=== PATIENT | female | born 1955 | race Caucasian/White ===

== ENCOUNTER → 2018-03-10 21:43 | Outpatient (CLI) | payer BC, SELFPAY ==
[2018-03-10 16:35] VITALS: BMI 42.7
[2018-03-10 21:54] LABS: Absolute Lymphocyte Count 2.11 X10^3/ul (0.83-4.51); Basophil# 0.03 X10^3/uL; Basophil% 0.3 % (0-1); Eosinophil# 0.19 X10^3/uL; Eosinophils% 1.9 % (0-5); Hematocrit 43.3 % (37-47); Hemoglobin 14.2 g/dl (12.0-15.0); Lymphocyte # 2.11 X10^3/ul (4.0); Lymphocyte % 21.1 % (19-41); Mean Corp Hgb Conc 32.8 g/gl (32-36); Mean Corpuscular Hgb 28.9 pg (27.0-32.0); Mean Platelet Vol. 10.4 fl (6.2-12.0); Monocyte# 0.61 X10^3/uL; Monocyte% 6.1 % (0-10); Neutrophil # 7.01 X10^3/uL (2.7-7.7); Neutrophil % 70.3 % (47-70); Platelet Count 291 K/mm3 (150-450); RBC Distribution Width CV 13.7 % (11.6-14.6); RBC Distribution Width SD 43.6 fl (35.1-43.9); Red Blood Count 4.92 M/mm3 (4.2-5.4)
[2018-03-10 21:55] LABS: POSITIVE COUNT NO; POSITIVE DIFFERENTIAL NO; POSITIVE MORPHOLOGY NO
[2018-03-10 22:15] LABS: ALB/GLOB Ratio 1.1 RATIO (0.9-2.4); AST(SGOT) 22 U/L (15-37); Alanine Aminotransfer ALT/SGPT 32 U/L (13-56); Alkaline Phosphatase 123 U/L (45-117); Anion Gap 8 (5-15); BUN 17 mg/dL (7-18); BUN/Creat Ratio 16.3 RATIO (10-20); Calcium,Total 8.9 mg/dL (8.5-10.1); Chloride 103 mmol/L (98-107); Cholesterol 162 mg/dL (200); Creatinine, Serum 1.04 mg/dL (0.55-1.02); EST Glomerular Filtration Rate 57 mL/min (>60); Est Glom Filt Rate - Afr Amer 69 mL/min (>60); Free T3 2.6 pg/mL (2.18-3.98); Globulin 3.6 g/dL (2.2-4.2); Glucose 90 mg/dL (74-106); High Density Lipoprotein 40 mg/dL; Potassium 4.2 mmol/L (3.5-5.1); Protein, Total 7.6 g/dL (6.4-8.2); Sodium Level 141 mmol/L (136-145); T4 Free Direct 0.95 ng/dL (0.76-1.46); Thyroid Stim Hormone (TSH) 4.13 uIU/mL (0.358-3.74); Triglycerides 337 mg/dL; Very Low Density Lipoprotein 67 mg/dL (5-40)
== END ==
PROVIDERS: Referring Provider Nurse Practitioner; Visit Provider Nurse Practitioner
DX: I10 Essential (primary) hypertension (principal); E03.9 Hypothyroidism, unspecified; E78.5 Hyperlipidemia, unspecified
CPT/HCPCS: 80053; 80061; 84439; 84443; 84481; 85025

== ENCOUNTER → 2018-07-02 22:47 | Outpatient (CLI) | payer BC, SELFPAY ==
[2018-03-10 16:35] VITALS: BMI 42.7
[2018-07-02 23:15] LABS: ALB/GLOB Ratio 1.1 RATIO (0.9-2.4); AST(SGOT) 25 U/L (15-37); Alanine Aminotransfer ALT/SGPT 37 U/L (13-56); Albumin, Serum 3.6 g/dL (3.2-5.0); Alkaline Phosphatase 119 U/L (45-117); Anion Gap 7 (5-15); BUN 23 mg/dL (7-18); BUN/Creat Ratio 17.7 RATIO (10-20); Calcium,Total 8.5 mg/dL (8.5-10.1); Chloride 103 mmol/L (98-107); Cholesterol 151 mg/dL (200); EST Glomerular Filtration Rate 44 mL/min (>60); Est Glom Filt Rate - Afr Amer 53 mL/min (>60); Globulin 3.4 g/dL (2.2-4.2); Glucose 162 mg/dL (74-106); High Density Lipoprotein 37 mg/dL; Potassium 3.9 mmol/L (3.5-5.1); Sodium Level 139 mmol/L (136-145); Thyroid Stim Hormone (TSH) 1.83 uIU/mL (0.358-3.74); Triglycerides 315 mg/dL; Very Low Density Lipoprotein 63 mg/dL (5-40)
[2018-07-02 23:18] LABS: Absolute Lymphocyte Count 1.53 X10^3/ul (0.83-4.51); Absolute Neutrophil Count 6.1 X10^3/uL (2.0-7.7); Basophil# 0.02 X10^3/uL; Basophil% 0.2 % (0-1); Eosinophil# 0.15 X10^3/uL; Eosinophils% 1.8 % (0-5); Hematocrit 42.1 % (37-47); Hemoglobin 13.3 g/dl (12.0-15.0); Lymphocyte # 1.53 X10^3/ul (4.0); Lymphocyte % 18.5 % (19-41); Mean Corp Hgb Conc 31.6 g/gl (32-36); Mean Corpuscular Hgb 27.9 pg (27.0-32.0); Mean Corpuscular Volume 88.4 fL (81-99); Mean Platelet Vol. 10.8 fl (6.2-12.0); Monocyte# 0.43 X10^3/uL; Monocyte% 5.2 % (0-10); Neutrophil # 6.12 X10^3/uL (2.7-7.7); Neutrophil % 73.8 % (47-70); Platelet Count 256 K/mm3 (150-450); RBC Distribution Width CV 14.1 % (11.6-14.6); RBC Distribution Width SD 44.8 fl (35.1-43.9); Red Blood Count 4.76 M/mm3 (4.2-5.4); White Blood Count 8.3 K/mm3 (4.4-11.0)
[2018-07-02 23:19] LABS: POSITIVE COUNT NO; POSITIVE DIFFERENTIAL NO; POSITIVE MORPHOLOGY NO
== END ==
PROVIDERS: Referring Provider Nurse Practitioner; Visit Provider Nurse Practitioner
DX: I10 Essential (primary) hypertension (principal); E78.5 Hyperlipidemia, unspecified; E03.9 Hypothyroidism, unspecified
CPT/HCPCS: 80053; 80061; 84443; 85025

== ENCOUNTER → 2018-08-11 | Outpatient (CLI) | payer BC, SELFPAY ==
[2018-07-12 17:04] VITALS: BMI 43.9
[2018-08-12 00:45] LABS: Thyroid Stim Hormone (TSH) 2.92 uIU/mL (0.358-3.74)
== END | disposition home or self-care (01) ==
LOC: OLS.AHF 08-12 00:08 → LABSPEC 08-13 08:11
PROVIDERS: Visit Provider Nurse Practitioner
DX: E03.9 Hypothyroidism, unspecified (principal)
CPT/HCPCS: 84443

== ENCOUNTER → 2019-03-08 | Outpatient (CLI) | payer BC, SELFPAY ==
[2019-03-07 22:11] VITALS: BMI 41.4
[2019-03-08 01:16] LABS: Cholesterol 151 mg/dL (200); High Density Lipoprotein 36 mg/dL; Thyroid Stim Hormone (TSH) 1.61 uIU/mL (0.358-3.74); Triglycerides 244 mg/dL; Very Low Density Lipoprotein 49 mg/dL (5-40)
== END | disposition home or self-care (01) ==
PROVIDERS: Family Provider Nurse Practitioner; PCP Nurse Practitioner; Referring Provider Nurse Practitioner; Visit Provider Nurse Practitioner
DX: E03.9 Hypothyroidism, unspecified (principal); E78.1 Pure hyperglyceridemia
CPT/HCPCS: 80061; 84443

== ENCOUNTER 2021-05-08 21:29 | Outpatient (CLI) | payer BC, SELFPAY ==
[2021-05-08 21:40] LABS: Absolute Lymphocyte Count 2.04 X10^3/uL (0.83-4.51); Absolute Neutrophil Count 6.3 X10^3/uL (2.0-7.7); Basophil# 0.06 X10^3/uL; Basophil% 0.7 % (0-1); Eosinophil# 0.11 X10^3/uL; Eosinophils% 1.2 % (0-5); Hemoglobin 15.3 g/dL (12.0-15.0); Lymphocyte # 2.04 X10^3/ul (0.83-4.51); Lymphocyte % 22.4 % (19-41); Mean Corp Hgb Conc 33.3 g/dL (32-36); Mean Corpuscular Hgb 29.3 pg (27.0-32.0); Mean Corpuscular Volume 88.1 fL (81-99); Mean Platelet Vol. 9.6 fl (6.2-12.0); Monocyte# 0.58 X10^3/uL; Monocyte% 6.4 % (0-10); NRBC Flagged by Analyzer 0 % (0-5); Neutrophil # 6.28 X10^3/uL (2.7-7.7); Neutrophil % 69.1 % (47-70); Platelet Count 335 K/mm3 (150-450); RBC Distribution Width SD 42.1 fl (35.1-43.9); Red Blood Count 5.22 M/mm3 (4.2-5.4); White Blood Count 9.1 K/mm3 (4.4-11.0)
[2021-05-08 22:02] LABS: AST(SGOT) 26 U/L (15-37); Alanine Aminotransfer ALT/SGPT 41 U/L (13-56); Alkaline Phosphatase 118 U/L (45-117); Anion Gap 5 (5-15); BUN 22 mg/dL (7-18); BUN/Creat Ratio 22.2 RATIO (10-20); Chloride 106 mmol/L (98-107); Cholesterol 199 mg/dL (200); Creatinine, Serum 0.99 mg/dL (0.55-1.02); EST Glomerular Filtration Rate 59 mL/min (>60); Est Glom Filt Rate - Afr Amer 72 mL/min (>60); Globulin 3.9 g/dL (2.2-4.2); Glucose 99 mg/dL (74-106); High Density Lipoprotein 50 mg/dL; Potassium 4.7 mmol/L (3.5-5.1); Protein, Total 7.9 g/dL (6.4-8.2); Sodium Level 142 mmol/L (136-145); Thyroid Stim Hormone (TSH) 1.47 uIU/mL (0.358-3.74); Triglycerides 118 mg/dL; Very Low Density Lipoprotein 24 mg/dL (5-40)
[2021-05-08 22:09] LABS: Hemoglobin A1c 6.3 % (3.8-5.6)
== END 2021-05-08 23:59 | disposition short-term general hospital (02) ==
PROVIDERS: PCP Nurse Practitioner; Referring Provider Nurse Practitioner; Visit Provider Nurse Practitioner
DX: I10 Essential (primary) hypertension (principal); E11.65 Type 2 diabetes mellitus with hyperglycemia; E06.3 Autoimmune thyroiditis; E03.9 Hypothyroidism, unspecified
CPT/HCPCS: 80053; 80061; 83036; 84443; 85025

== ENCOUNTER → 2022-06-17 | Outpatient (CLI) | payer BC, SELFPAY ==
[2022-06-17 23:02] LABS: Absolute Lymphocyte Count 1.99 X10^3/uL (0.83-4.51); Absolute Neutrophil Count 6.7 X10^3/uL (2.0-7.7); Basophil# 0.06 X10^3/uL; Basophil% 0.6 % (0-1); Eosinophil# 0.15 X10^3/uL; Eosinophils% 1.6 % (0-5); Hematocrit 47.3 % (37-47); Hemoglobin 15.4 g/dL (12.0-15.0); Lymphocyte # 1.99 X10^3/ul (0.83-4.51); Lymphocyte % 21.1 % (19-41); Mean Corp Hgb Conc 32.6 g/dL (32-36); Mean Corpuscular Hgb 28.8 pg (27.0-32.0); Mean Corpuscular Volume 88.6 fL (81-99); Mean Platelet Vol. 11.1 fl (6.2-12.0); Monocyte# 0.54 X10^3/uL; Monocyte% 5.7 % (0-10); NRBC Flagged by Analyzer 0 % (0-5); Neutrophil # 6.66 X10^3/uL (2.7-7.7); Neutrophil % 70.7 % (47-70); Platelet Count 303 K/mm3 (150-450); RBC Distribution Width CV 13.1 % (11.6-14.6); RBC Distribution Width SD 42.1 fl (35.1-43.9); Red Blood Count 5.34 M/mm3 (4.2-5.4); White Blood Count 9.4 K/mm3 (4.4-11.0)
[2022-06-17 23:36] LABS: ALB/GLOB Ratio 1.1 RATIO (0.9-2.4); AST(SGOT) 27 U/L (15-37); Alanine Aminotransfer ALT/SGPT 33 U/L (13-56); Albumin, Serum 3.8 g/dL (3.2-5.0); Alkaline Phosphatase 130 U/L (45-117); Anion Gap 7 (5-15); BUN 19 mg/dL (7-18); Calcium,Total 9.4 mg/dL (8.5-10.1); Chloride 103 mmol/L (98-107); Cholesterol 196 mg/dL (200); Creatinine, Serum 1.19 mg/dL (0.55-1.02); EST Glomerular Filtration Rate 48 mL/min (>60); Est Glom Filt Rate - Afr Amer 58 mL/min (>60); Globulin 3.6 g/dL (2.2-4.2); Glucose 128 mg/dL (74-106); High Density Lipoprotein 42 mg/dL; Potassium 4.2 mmol/L (3.5-5.1); Protein, Total 7.4 g/dL (6.4-8.2); Sodium Level 140 mmol/L (136-145); Thyroid Stim Hormone (TSH) 1.84 uIU/mL (0.358-3.74); Triglycerides 423 mg/dL
== END | disposition home or self-care (01) ==
PROVIDERS: PCP Nurse Practitioner; Visit Provider Nurse Practitioner
DX: I10 Essential (primary) hypertension (principal); E03.9 Hypothyroidism, unspecified; E78.1 Pure hyperglyceridemia; E78.5 Hyperlipidemia, unspecified
CPT/HCPCS: 80053; 80061; 84443; 85025

== ENCOUNTER → 2023-10-02 | Outpatient (CLI) | payer BC, SELFPAY ==
[2023-10-02 20:30] LABS: Absolute Neutrophil Count 5.3 X10^3/uL (2.0-7.7); Basophil# 0.04 X10^3/uL; Basophil% 0.5 % (0-1); Eosinophil# 0.16 X10^3/uL; Eosinophils% 2.1 % (0-5); Hematocrit 43.8 % (37-47); Hemoglobin 14.4 g/dL (12.0-15.0); Lymphocyte % 23.1 % (19-41); Mean Corp Hgb Conc 32.9 g/dL (32-36); Mean Corpuscular Hgb 28.9 pg (27.0-32.0); Mean Platelet Vol. 10.7 fl (6.2-12.0); Monocyte# 0.44 X10^3/uL; Monocyte% 5.7 % (0-10); NRBC Flagged by Analyzer 0 % (0-5); Neutrophil # 5.32 X10^3/uL (2.7-7.7); Neutrophil % 68.3 % (47-70); Platelet Count 267 K/mm3 (150-450); RBC Distribution Width CV 13.1 % (11.6-14.6); RBC Distribution Width SD 41.6 fl (35.1-43.9); Red Blood Count 4.98 M/mm3 (4.2-5.4); White Blood Count 7.8 K/mm3 (4.4-11.0)
[2023-10-02 20:58] LABS: Hemoglobin A1c 5.8 % (3.8-5.6)
[2023-10-02 21:03] LABS: ALB/GLOB Ratio 1.2 RATIO (0.9-2.4); AST(SGOT) 32 U/L (15-37); Alanine Aminotransfer ALT/SGPT 39 U/L (13-56); Alkaline Phosphatase 89 U/L (45-117); Anion Gap 7 (5-15); BUN 26 mg/dL (7-18); BUN/Creat Ratio 25.2 RATIO (10-20); Calcium,Total 9.6 mg/dL (8.5-10.1); Chloride 103 mmol/L (98-107); Cholesterol 174 mg/dL (200); Creatinine, Serum 1.03 mg/dL (0.55-1.02); EST Glomerular Filtration Rate 57 mL/min (>60); Est Glom Filt Rate - Afr Amer 68 mL/min (>60); Globulin 3.4 g/dL (2.2-4.2); Glucose 105 mg/dL (74-106); High Density Lipoprotein 41 mg/dL; Potassium 3.9 mmol/L (3.5-5.1); Protein, Total 7.4 g/dL (6.4-8.2); Sodium Level 139 mmol/L (136-145); Thyroid Stim Hormone (TSH) 1.01 uIU/mL (0.358-3.74); Triglycerides 232 mg/dL; Very Low Density Lipoprotein 46 mg/dL (5-40)
== END | disposition home or self-care (01) ==
PROVIDERS: PCP Nurse Practitioner; Referring Provider Nurse Practitioner; Visit Provider Nurse Practitioner
DX: E11.65 Type 2 diabetes mellitus with hyperglycemia (principal); E78.1 Pure hyperglyceridemia; I10 Essential (primary) hypertension
CPT/HCPCS: 80053; 80061; 83036; 84443; 85025

== ENCOUNTER → 2025-02-20 | Outpatient (CLI) | payer BC, SELFPAY ==
--- OUTSIDE RECORDS SUMMARY | 2025-02-20 22:23 | XMS RPT_ITS | CCD ---
Author Organization [facility] Inform ion Partnership [facility] Care Team Providers Care Activated Sludge Operator Name Role Phone Louise Reyes Primary Care Provider Louise Reyes Unavailable Unavailable Louise Reyes Unavailable Unavailable Louise Reyes Unavailable Unavailable Unavailable Jimmie Silveira MD Unavailable Dr. Louise Reyes Primary Care Perez JOHNSON, Dr. ARIANA ROUSE Attending Perez JOHNSON, Dr. ARIANA ROUSE Referring Perez Noel MANAGER TRADE.SALES ARCHITECTChristopher Primary Care Provide r CHRISTOPHER NOEL Referring Unavailable CHRISTOPHER NOEL Primary Care Unavailable Milton HEAVY DUTY PRESS OPERATOR, Christopher Referring Unavailable Milton HEAVY DUTY PRESS OPERATOR, Christopher Attending Unavailable Milton HEAVY DUTY PRESS OPERATOR, Christopher Primary Care Unavailable Allergies Allergy Classification Reported Allergen(s) Allergy Type Date of Onset Reaction(s) Facility Cephalosporins (antibiotic) (1 source) Cefaclor; Translations: [Ceclor] Drug Allergy [facility] Work Phone: (7 sources) Cefaclor Drug Allergy 06-11-2021 Itching [facility] Work Phone: (1 source) Cefaclor Drug Allergy 03-10-2018 rash [facility] (1 source) Cefaclor Drug Allergy 03-10-2018 [facility] Repository Medications Current Medications Medication Drug Class(es) Dates Sig (Normalized) Sig (Original) [id number] 200 actuat albuterol 0.09 mg/actuat metered dose inhaler (9 sources) beta2-Adrenergic Agonist Start: 07-05-2019 End: 06-17-2022 take 1 puff(s) by inhalation every four hours Albuterol Sulfate (Proair Hfa) 90 mcg/actuation HFA aerosol inhaler Active 2 PUFF INHALATION Q4H 8.5 June 17, 2022 3:18pm Start: 07-12-2018 take 2 puff(s) by [facility] every four hours as needed ProAir HFA 108 (90 Base) MCG/ACT Inhalation Aerosol Solution inhale 2 (TWO) puffs BY MOUTH EVERY 4 HOURS NEEDED for bronchospasm Quantity: 8 Refills: 0 Ordered: 12-Jul-2018 DO Start : 12-Jul-2018 Active Start: 07-12-2018 take 2 puff(s) by mo [facility] every four hours as needed ProAir HFA 108 (90 Base) MCG/ACT Inhalation Aerosol Solution inhale 2 (TWO) puffs BY MOUTH EVERY 4 HOURS NEEDED for bronchospasm Quantity: 8 Refills: 0 Start : 12-Jul-2018 Active candesartan cilexetil 16 mg oral tablet (12 sources) Angiotensin 2 Receptor Miguel Start: 05-28-2020 take 1 tablet by mouth once daily Candesartan Cilexetil 8 MG Oral Tablet TAKE 1 TABLET BY MOUTH EVERY DAY Quantity: 90 Refills: 1 Ordered: 20-Nov-2020 Louise Reyes DO Start : 28-May-2020 Active Start: 07-02-2018 End: 06-17-2022 take 16 mg by mouth once daily Candesartan Active 16 M G PO DAILY June 17, 2022 3:16pm hydroCHLOROthiazide 25 mg oral tablet (12 sources) Thiazide Diuretic Start: 07-02-2018 End: 06-17-2022 take 25 mg by mouth once daily in the morning Hydrochlorothiazide Active 25 MG PO EVERY MORNING June 17, 2022 3:16pm levothyroxine sodium 0.1 mg oral tablet (15 sources) l-Thyroxine Start: 01-24-2019 End: 06-18-2022 take 100 ug by mouth once daily Levothyroxine Active 100 MCG PO daily June 18, 2022 7:37pm Start: 06-11-2018 End: 09-09-2018 take 75 ug by mouth once daily Levothyroxine Discontin ued 75 MCG PO daily July 05, 2018 12:06September 08, 2018 11:06pm Start: 03-10-2018 End: 07-02-2018 take 50 ug by mouth once daily Levothyroxine Discontin ued 50 MCG PO DAILY March 10, 2018 12:00am July 02, 2018 3:59pm Completed/Discontinued Medications Medication Drug Class(es) Dates Sig (Normalized) Sig (Original) Albuterol Sulfate (Proair Hfa) 90 mcg/actuation HFA aerosol inhaler (1 source) Start: 07-12-2018 End: 07-05-2019 take 1 puff(s) by inhalation every four hours Albuterol Sulfate (Proair Hfa) 90 mcg/actuation HFA aerosol inhaler Discontinued 2 PUFF INHALATION Q4H 8.5 July 11, 2018 11:00pm July 05, 2019 2:17pm amoxicillin 875 mg / clavulanate 125 mg oral tablet (1 source) Penicillin-class Antibacterial Start: 07-05-2018 End: 07-12-2018 take 1 tablet by mouth twice daily Amoxicillin-Pot Clavulanate Discontinued 1 TABLET PO TWICE A DAY July 04, 2018 11:00pm July 12, 2018 4:24pm hydroCHLOROthiazide 25 mg / losartan potassium 100 mg oral tablet (2 sources) Thiazide Diuretic, Angiotensin 2 Receptor Miguel Start: 03-10-2018 End: 07-02-2018 take 1 tablet by mouth once daily Losartan-Hydroch lorothiazide Discontinued 1 TABLET PO DAILY March 10, 2018 4:57pm July 02, 2018 3:59pm levoFLOXacin 500 mg oral tablet (1 source) Quinolone Antimicrobial Start: 07-12-2018 End: 01-24-2019 take 500 mg by mouth once daily Levofloxacin Discontinued 500 MG PO DAILY July 11, 2018 11:00pm January 24, 2019 2:04pm predniSONE 10 mg oral tablet (1 source) Start: 07-12-2018 End: 07-20-2018 Prednisone Discontinued 20 MG PO TWICE A DAY 24 08July 11, 2018 11:00pm July 19, 2018 11:07pm 2 po bid 4D,1 po bid for 4 D, 1 po qd for 4D 1/2 po qd for2 D Problems Active Problems Problem Classification Problem Date Documented Da te Episodic/Chronic Chronic obstructive pulmonary disease and bronchiectasis (1 source) Bronchitis; Translations: [Bronchitis, not specified as acute or chronic] 07-12-2018 Episodic Diabetes mellitus with complications (2 sources) Type II diabetes mellitus uncontrolled; Translations: [Uncontrolled type 2 diabetes mellitus] Onset: 10-12-2023 05-08-2021 Chronic Diabetes mellitus without complication (1 source) Hyperglycemia; Translations: [Impaired fasting glucose] Episodic Disorders of lipid metabolism (3 sources) Mixed hyperlipidemia; Translations: [Mixed hyperlipidemia] 03-07-2019 Chronic Essential hypertension (8 sources) Benign essential hypertension; Translations: [Benign essential hypertension] 07-05-2019 Chronic Fever of unknown origin (1 source) Fever; Translations: [Fever, unspecified] 07-12-2018 Episodic Immunizations and screening for infectious disease (7 sources) Patient encounter status; Translations: [Other specified vaccination] 05-08-2021 Episodic Comment on above: cat 1 neg 09/2019; 10/20/2019 Dr.David Bender yers-> diverticula, tortuous colon, polyp b9; Neoplasms of unspecified nature or uncertain behavior (1 source) 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; Translations: [Neoplasm of uncertain behavior of connective and other soft tissue] Onset: 06-11-2021 06-11-2021 Episodic Nutritional deficiencies (1 source) Vitamin D deficiency; Translations: [Vitamin D deficiency, unspecified] 01-24-2019 Chronic Other nutritional; endocrine; and metabolic disorders (7 sources) Body mass index 40+ - severely obese; Translations: [Body Mass Index 40.0-44.9, adult] Chronic Other screening for suspected conditions (not mental disorders or infectious disease) (1 source) Encounter for screening mammogram for malignant neoplasm of breast; Translations: [Encounter for screening mammogram for malignant neoplasm of breast] Onset: 11-06-2022 Episodic Other upper respiratory infections (1 source) Maxillary sinusitis; Translations: [Chronic maxillary sinusitis] 07-05-2018 Chronic Other upper respiratory infections (1 source) Pharyngitis; Translations: [Acute pharyngitis, unspecified] 07-05-2018 Episodic Otitis media and related conditions (2 sources) Acute left otitis media; Translations: [Otitis media, unspecified, left ear] 07-05-2018 Episodic Thyroid disorders (10 sources) Hypothyroidism; Translations: [Unspecified acquired hypothyroidism] 11-25-2021 Chronic Past or Other Problems Problem Classification Problem Date Documented Da te Episodic/Chronic Unclassified (20 sources) Patient encounter status; Translations: [Breast cancer screening] Unclassified (1 source) Problem NEGATED: Highlighted row has not occurred!Residual codes; unclassified (12 sources) Disease Episodic Results Test Name Value Interpretation Reference Range Facility CBC W/Diff, Automatedon 06-0 7-2023 Absolute Lymph 1.80 X10 3/uL Normal 0.83-4.51 [facility] Comment on above: Performed By: #### L 100.0100, L501.9985, L500.4050, L500.4100, L501.9520 #### [facility] [address] [place], [address] Absolute Neut 5.3 X10 3/uL Normal 2.0-7.7 [facility] Comment on above: Performed By: #### L 100.0100, L501.9985, L500.4050, L500.4100, L501.9520 #### [facility] [address] [place], [address] Basophils/100 WBC (Bld) 0.5 % Normal 0-1 [facility] Comment on above: Performed By: #### L 100.0100, L501.9985, L500.4050, L500.4100, L501.9520 #### [facility] [address] [place], [address] Eosinophils/100 WBC (Bld) 2.1 % Normal 0-5 [facility] Comment on above: Performed By: #### L 100.0100, L501.9985, L500.4050, L500.4100, L501.9520 #### [facility] [address] [place], [address] Erythrocyte distribution width (RBC) [Ratio] 13.1 % Normal 11.6-14.6 [facility] Comment on above: Performed By: #### L 100.0100, L501.9985, L500.4050, L500.4100, L501.9520 #### [facility] [address] [place], [address] Hematocrit (Bld) [Volume fraction] 43.8 % Normal 37-47 [facility] Comment on above: Performed By: #### L 100.0100, L501.9985, L500.4050, L500.4100, L501.9520 #### [facility] [address] [place], [address] Hemoglobin (Bld) [Mass/Vol] 14.4 g/dL Normal 12.0-15.0 [facility] Comment on above: Performed By: #### L 100.0100, L501.9985, L500.4050, L500.4100, L501.9520 #### [facility] [address] [place], [address] IG% 0.300 Normal 0.0-0.9 [facility] Comment on above: Result Comment: IG% - Immature Granulocytes (promyelocytes, myelocytes and metamyelocytes) > 1% indicates that a LEFT SHIFT is Present. Performed By: #### L 100.0100, L501.9985, L500.4050, L500.4100, L501.9520 #### [facility] [address] [place], [address] Lymphocytes/100 WBC (Bld) 23.1 % Normal 19-41 [facility] Comment on above: Performed By: #### L 100.0100, L501.9985, L500.4050, L500.4100, L501.9520 #### [facility] [address] [place], [address] MCH (RBC) [Entitic mass] 28.9 pg Normal 27.0-32.0 [facility] Comment on above: Performed By: #### L 100.0100, L501.9985, L500.4050, L500.4100, L501.9520 #### [facility] [address] [place], [address] MCHC (RBC) [Mass/Vol] 32.9 g/dL Normal 32-36 [facility] Comment on above: Performed By: #### L 100.0100, L501.9985, L500.4050, L500.4100, L501.9520 #### [facility] [address] [place], [address] MCV (RBC) [Entitic vol] 88.0 fL Normal 81-99 [facility] Comment on above: Performed By: #### L 100.0100, L501.9985, L500.4050, L500.4100, L501.9520 #### [facility] [address] [place], [address] Monocytes/100 WBC (Bld) 5.7 % Normal 0-10 [facility] Comment on above: Performed By: #### L 100.0100, L501.9985, L500.4050, L500.4100, L501.9520 #### [facility] [address] [place], [address] Neutrophils/100 WBC (Bld) 68.3 % Normal 47-70 [facility] Comment on above: Performed By: #### L 100.0100, L501.9985, L500.4050, L500.4100, L501.9520 #### [facility] [address] [place], [address] Nucleated RBC (Bld) [#/Vol] 0 10*3/uL Normal 0-5 [facility] Comment on above: Performed By: #### L 100.0100, L501.9985, L500.4050, L500.4100, L501.9520 #### [facility] [address] [place], [address] Platelet mean volume (Bld) [Entitic vol] 10.7 fL Normal 6.2-12.0 [facility] Comment on above: Performed By: #### L 100.0100, L501.9985, L500.4050, L500.4100, L501.9520 #### [facility] [address] [place], [address] Platelets (Bld) [#/Vol] 267 10*3/uL Normal 150-450 [facility] Comment on above: Performed By: #### L 100.0100, L501.9985, L500.4050, L500.4100, L501.9520 #### [facility] [address] [place], [address] RBC (Bld) [#/Vol] 4.98 10*6/uL Normal 4.2-5.4 [facility] Comment on above: Performed By: #### L 100.0100, L501.9985, L500.4050, L500.4100, L501.9520 #### [facility] [address] [place], [address] RDW SD 41.6 fl Normal 35.1-43.9 [facility] Comment on above: Performed By: #### L 100.0100, L501.9985, L500.4050, L500.4100, L501.9520 #### [facility] [address] [place], [address] WBC (Bld) [#/Vol] 7.8 10*3/uL Normal 4.4-11.0 [facility] Comment on above: Performed By: #### L 100.0100, L501.9985, L500.4050, L500.4100, L501.9520 #### [facility] [address] [place], [address] Comprehensive Metabolic Prof [facility] 10-02-2023 Albumin [Mass/Vol] 4.0 g/dL Normal 3.2-5.0 [facility] Comment on above: Performed By: #### L 100.0100, L501.9985, L500.4050, L500.4100, L501.9520 #### [facility] [address] [place], [address] Albumin/Globulin [Mass ratio] 1.2 {ratio} Normal 0.9-2.4 [facility] Comment on above: Performed By: #### L 100.0100, L501.9985, L500.4050, L500.4100, L501.9520 #### [facility] [address] [place], [address] ALK P 89 U/L Normal 45-117 [facility] Comment on above: Performed By: #### L 100.0100, L501.9985, L500.4050, L500.4100, L501.9520 #### [facility] [address] [place], [address] ALT [Catalytic activity/Vol] 39 U/L Normal 13-56 [facility] Comment on above: Performed By: #### L 100.0100, L501.9985, L500.4050, L500.4100, L501.9520 #### [facility] [address] [place], [address] AST [Catalytic activity/Vol] 32 U/L Normal 15-37 [facility] Comment on above: Performed By: #### L 100.0100, L501.9985, L500.4050, L500.4100, L501.9520 #### [facility] [address] [place], [address] Bilirubin [Mass/Vol] 0.50 mg/dL Normal 0.20-1.00 [facility] Comment on above: Result Comment: For patients on eltrombopag therapy, use of Dimension [place] TBIL is not recommended. Performed By: #### L 100.0100, L501.9985, L500.4050, L500.4100, L501.9520 #### [facility] [address] [place], [address] BUN/CRE 25.2 RATIO High 10-20 [facility] Comment on above: Performed By: #### L 100.0100, L501.9985, L500.4050, L500.4100, L501.9520 #### [facility] [address] [place], [address] CA,Total 9.6 mg/dL Normal 8.5-10.1 [facility] Comment on above: Performed By: #### L 100.0100, L501.9985, L500.4050, L500.4100, L501.9520 #### [facility] [address] [place], [address] Chloride [Moles/Vol] 103 mmol/L Normal 98-107 [facility] Comment on above: Performed By: #### L 100.0100, L501.9985, L500.4050, L500.4100, L501.9520 #### [facility] [address] [place], [address] CO2 [Moles/Vol] 29.0 mmol/L Normal 21.0-32.0 [facility] Comment on above: Performed By: #### L 100.0100, L501.9985, L500.4050, L500.4100, L501.9520 #### [facility] [address] [place], [address] Creatinine [Mass/Vol] 1.03 mg/dL High 0.55-1.02 [facility] Comment on above: Result Comment: The validity of the calculated GFR GFRAA in patients over 70 years has not been determined. Clinical correlation is essential. Performed By: #### L 100.0100, L501.9985, L500.4050, L500.4100, L501.9520 #### [facility] [address] [place], [address] EST GFR - AA 68 mL/min Normal >60 [facility] Comment on above: Result Comment: Afri can [place]eg[place] GFR Calc Performed By: #### L 100.0100, L501.9985, L500.4050, L500.4100, L501.9520 #### [facility] [address] [place], [address] GAP 7 Normal 5-15 [facility] Comment on above: Performed By: #### L 100.0100, L501.9985, L500.4050, L500.4100, L501.9520 #### [facility] [address] [place], [address] GFR/1.73 sq M.predicted among non-blacks MDRD (S/P/Bld) [Vol rate/Area] 57 mL/min/{1.73_m2} Low >60 [facility] Comment on above: Result Comment: Non- GFR Calc Performed By: #### L 100.0100, L501.9985, L500.4050, L500.4100, L501.9520 #### [facility] [address] [place], [address] Globulin (S) [Mass/Vol] 3.4 g/dL Normal 2.2-4.2 [facility] Comment on above: Performed By: #### L 100.0100, L501.9985, L500.4050, L500.4100, L501.9520 #### [facility] [address] [place], [address] Glucose [Mass/Vol] 105 mg/dL Normal 74-106 [facility] Comment on above: Result Comment: Fast ing Glucose result from 100 to 125 mg/dL suggests IMPAIRED HOMEOSTASIS per A.D.A. criteria. Performed By: #### L 100.0100, L501.9985, L500.4050, L500.4100, L501.9520 #### [facility] [address] [place], [address] Potassium [Moles/Vol] 3.9 mmol/L Normal 3.5-5.1 [facility] Comment on above: Performed By: #### L 100.0100, L501.9985, L500.4050, L500.4100, L501.9520 #### [facility] [address] [place], [address] Sodium [Moles/Vol] 139 mmol/L Normal 136-145 [facility] Comment on above: Performed By: #### L 100.0100, L501.9985, L500.4050, L500.4100, L501.9520 #### [facility] [address] [place], [address] T PROT 7.4 g/dL Normal 6.4-8.2 [facility] Comment on above: Performed By: #### L 100.0100, L501.9985, L500.4050, L500.4100, L501.9520 #### [facility] [address] [place], [address] Urea nitrogen [Mass/Vol] 26 mg/dL High 7-18 [facility] Comment on above: Performed By: #### L 100.0100, L501.9985, L500.4050, L500.4100, L501.9520 #### [facility] [address] [place], [address] Hemoglobin A1con 10-02-2023 HbA1c (Bld) [Mass fraction] 5.8 % High 3.8-5.6 [facility] Comment on above: Result Comment: Norm al < 5.7 % Prediabetic 5.7 - 6.4 % Diabetic >or= 6.5 % Please note range changes. Performed By: #### L 100.0100, L501.9985, L500.4050, L500.4100, L501.9520 #### [facility] [address] [place], [address] Lipid Profileon 10-02-2023 Cholesterol [Mass/Vol] 174 mg/dL Normal 200 [facility] Comment on above: Result Comment: <200 mg/dL Desirable 200-240 mg/dL Borderline >240 mg/dL High Risk Performed By: #### L 100.0100, L501.9985, L500.4050, L500.4100, L501.9520 #### [facility] [address] [place], [address] Cholesterol in HDL [Mass/Vol] 41 mg/dL Normal [facility] Comment on above: Result Comment: The drugs N-Acetylcysteine and Metamizole may falsely depress this assay. Reference Range HDL <40 mg/dL Low HDL Cholesterol HDL >or= 60 mg/dL High HDL Cholesterol Performed By: #### L 100.0100, L501.9985, L500.4050, L500.4100, L501.9520 #### [facility] [address] [place], [address] Cholesterol in LDL [Mass/Vol] 87 mg/dL Normal 0-130 [facility] Comment on above: Performed By: #### L 100.0100, L501.9985, L500.4050, L500.4100, L501.9520 #### [facility] [address] [place], [address] Cholesterol in VLDL [Mass/Vol] 46 mg/dL High 5-40 [facility] Comment on above: Performed By: #### L 100.0100, L501.9985, L500.4050, L500.4100, L501.9520 #### [facility] [address] [place], [place], [address] Triglyceride [Mass/Vol] 232 mg/dL High [facility] Comment on above: Result Comment: The drugs N-Acetylcysteine and Metamizole may falsely depress this assay. Serum Triglycerides Reference Interval Normal <150 mg/dL Borderline high 150 - 199 mg/dL High 200 - 499 mg/dL Very High > or = 500 mg/dL Performed By: #### L 100.0100, L501.9985, L500.4050, L500.4100, L501.9520 #### [facility] [address] [place], [place], [address] Thyroid Stim Hormone (TSH)on 10-02-2023 TSH 1.01 uIU/mL Normal 0.358-3.74 [facility] Comment on above: Performed By: #### L 100.0100, L501.9985, L500.4050, L500.4100, L501.9520 #### [facility] [address] [place], [place], [address] [facility] 11-06-2022 [facility] HNO ID: [id number] Author: Mammography Coordinator Service: ? Author Type: Physician Type: Letter Filed: 11/10/2022 11:34 PM Note Text: November 07, 2022 PID: [id number] Nara Vega [address] [place] [address] Dear Ms. Vega, We are pleased to inform you that the results of your recent breast imaging exam on 11/06/2022 are normal. Early detection of cancer is very important. We also understand recommendations regarding breast cancer screening are controversial. Please discuss with your primary care provider which strategy is best for you and whether a mammogram is right for you. Your imaging studies and report will be kept on file at [facility] as part of your permanent medical record and are available for your continuing care. Thank you for allowing us to help in meeting your health care needs. Sincerely, Dr. Hooker Interpreting Radiologist [facility] (Normal over 40) Normal [facility] SCREENINGon 11-06-2022 ADIS SCREENING * * *Final Report* * * DATE OF EXAM: Nov 06 2022 10:07AM DEVANTE [id number] - [facility] SCREENING / PROCEDURE REASON: z13.21 screening * * * * Physician Interpretation * * * * #[id number] - [facility] SCREENING BILATERAL DIGITAL SCREENING MAMMOGRAM WITH CAD: 11/06/2022 HISTORY: Z13.21 Screening / Screening Mammogram-Patient reports NO symptoms. RESULT: TECHNIQUE: The study was acquired using full field digital technology and interpreted from soft copy. Current study was also evaluated with a Computer Aided Detection (CAD). Comparison is made to exams dated: 06/10/2021 mammogram, 10/14/2019 mammogram, and 08/06/2016 mammogram - [facility]. The tissue of both breasts is predominantly fatty. No significant masses, calcifications, or other findings are seen in either breast. There has been no significant interval change. IMPRESSION: NEGATIVE There is no mammographic evidence of malignancy. A 1 year screening mammogram is recommended. Chevy blanchard/thom:11/06/2022 21:22:46 Attending Technologist(s): RT Sandy(R)(M), [facility] Video [employer] Sound Recorder(s): RT Cynthia(R)(M), [facility] letter sent: Normal over 40 Mammogram BI-RADS: 1 Negative Multiple national specialty organizations have released breast cancer screening guidelines for women at average risk for developing breast cancer - guidelines that are based on both evidence and opinion, yet differ on when to start and how often to screen for breast cancer. With representation from Breast Imaging, Internal Medicine, Women's Health, Family Medicine, and Medical/Surgical Oncology, the [facility] has carefully reviewed the data and reached the following consensus: 1) All women should engage in shared decision-making with their providers to decide when to start and how often to screen; 2) All women should have the opportunity to start screening mammography at age 40; 3) For women ages 45-55, we recommend annual screening mammograms; 4) For women ages 55 and over, we support both the transition from an annual to a biennial interval if this aligns more with patient's values and preferences, or continuation with annual screening; 5) All women should discuss with their providers when to stop screening mammograms. Non Ferrous Material Handler: Thom Transcribe Date/Time: Nov 06 2022 9:33A Dictated by : CHEVY HOOKER MD This examination was interpreted and the report reviewed and electronically signed by: CHEVY HOOKER MD on Nov 06 2022 9:22PM EST [id number] Normal [facility] Absolute lymphocyte countOrd ered By: Christopher Noel on 06-17-2022 Lymphocytes Auto (Unsp spec) [#/Vol] 1.99 10*3/uL 0.83-4.51 [facility] Basophil percentageOrdered B y: Christopher Noel on 06-17-2022 Basophils/100 WBC (Bld) 0.6 % 0-1 [facility] Bilirubin [Mass/Vol] 0.30 mg/dL 0.20-1.00 [facility] Comment on above: For patients on eltr ombopag therapy, use of Dimension [place] TBIL is not recommended. Chloride [Moles/Vol] 103 mmol/L 98-107 [facility] Cholesterol [Mass/Vol] 196 mg/dL <200 [facility] Comment on above: <200 mg/dL Desirable 200-240 mg/dL Borderline >240 mg/dL High Risk Eosinophils/100 WBC (Bld) 1.6 % 0-5 [facility] Glucose [Mass/Vol] 128 mg/dL 74-106 [facility] Comment on above: Fasting Glucose resu lt greater than or equal to 126 mg/dL suggests DIABETES MELLITUS per A.D.A. criteria. Neutrophils (Bld) [#/Vol] 6.7 10*3/uL 2.0-7.7 [facility] Neutrophils/100 WBC (Bld) 70.7 % 47-70 [facility] Potassium [Moles/Vol] 4.2 mmol/L 3.5-5.1 [facility] Protein [Mass/Vol] 7.4 g/dL 6.4-8.2 [facility] Sodium [Moles/Vol] 140 mmol/L 136-145 [facility] Triglyceride [Mass/Vol] 423 mg/dL <199 [facility] Comment on above: The drugs N-Acetylcy steine and Metamizole may falsely depress this assay. TRIGLYCERIDE IS GREATER THAN 400 mg/dL. LDL RESULT IS INVALID AND WILL NOT BE REPORTED.Serum Triglycerides Reference Interval Normal <150 mg/dL Borderline high 150 - 199 mg/dL High 200 - 499 mg/dL Very High > or = 500 mg/dL WBC (Bld) [#/Vol] 9.4 10*3/uL 4.4-11.0 [facility] Blood erythrocytes count (nu mber/volume)Ordered By: Christopher Noel on 06-17-2022 RBC (Bld) [#/Vol] 5.34 10*6/uL 4.2-5.4 [facility] Blood hemoglobin measurement (mass/volume)Ordered By: Christopher Noel on 06-17-2022 Hemoglobin (Bld) [Mass/Vol] 15.4 g/dL 12.0-15.0 [facility] Blood lymphocytes/100 leukoc ytesOrdered By: Christopher Noel on 06-17-2022 Lymphocytes/100 WBC (Bld) 21.1 % 19-41 [facility] Blood monocytes/100 leukocyt esOrdered By: Christopher Noel on 06-17-2022 Monocytes/100 WBC (Bld) 5.7 % 0-10 [facility] Blood platelet mean volumeOr dered By: Christopher Noel on 06-17-2022 Platelet mean volume (Bld) [Entitic vol] 11.1 fL 6.2-12.0 [facility] Determination of erythrocyte mean corpuscular volume (MCV)Ordered By: Christopher Noel on 06-17-2022 MCV (RBC) [Entitic vol] 88.6 fL 81-99 [facility] Hematocrit Auto (Bld) [Volum e fraction]Ordered By: Christopher Noel on 06-17-2022 Hematocrit (Bld) [Volume fraction] 47.3 % 37-47 [facility] Laboratory - Chemistry and C hemistry - challengeOrdered By: Christopher Noel on 06-17-2022 ALP [Catalytic activity/Vol] 130 U/L 45-117 [facility] ALT [Catalytic activity/Vol] 33 U/L 13-56 [facility] CO2 [Moles/Vol] 30.0 mmol/L 21.0-32.0 [facility] Globulin (S) [Mass/Vol] 3.6 g/dL 2.2-4.2 [facility] Urea nitrogen/Creatinine [Mass ratio] 16.0 mg/mg 10-20 [facility] Laboratory - Hematology and Cell countsOrdered By: Christopher Noel on 06-17-2022 Erythrocyte distribution width (RBC) [Entitic vol] 42.1 fL 35.1-43.9 [facility] Erythrocyte distribution width (RBC) [Ratio] 13.1 % 11.6-14.6 [facility] Immature granulocytes/100 WBC (Bld) 0.300 % 0.0-0.9 [facility] Comment on above: IG% - Immature Granu locytes (promyelocytes, myelocytes and metamyelocytes) > 1% indicates that a LEFT SHIFT is Present. MCH (RBC) [Entitic mass] 28.8 pg 27.0-32.0 [facility] Nucleated RBC/100 WBC (Bld) [Ratio] 0 % 0-5 [facility] MCHC Auto (RBC) [Mass/Vol]Or dered By: Christopher Noel on 06-17-2022 MCHC (RBC) [Mass/Vol] 32.6 g/dL 32-36 [facility] No Panel InformationOrdered By: Christopher Noel on 06-17-2022 Estimated GFR (MDRD) Amer 58 mL/min >60 [facility] Comment on above: GFR Calc Estimated GFR (MDRD) Non-Af Amer 48 mL/min >60 [facility] Comment on above: Non- GFR Calc Thyroid Stimulating Hormone (TSH) 1.84 uIU/mL 0.358-3.74 [facility] Platelets bldOrdered By: Lennox Noel on 06-17-2022 Platelets (Bld) [#/Vol] 303 10*3/uL 150-450 [facility] Serum or plasma albumin china urement (mass/volume)Ordered By: Christopher Noel on 06-17-2022 Albumin [Mass/Vol] 3.8 g/dL 3.2-5.0 [facility] Serum or plasma albumin/glob ulin mass ratioOrdered By: Christopher Noel on 06-17-2022 Albumin/Globulin [Mass ratio] 1.1 {ratio} 0.9-2.4 [facility] Serum or plasma calcium china urement (mass/volume)Ordered By: Christopher Noel on 06-17-2022 Calcium [Mass/Vol] 9.4 mg/dL 8.5-10.1 [facility] Serum or plasma cholesterol in HDL measurement (mass/volume)Ordered By: Christopher Noel on 06-17-2022 Cholesterol in HDL [Mass/Vol] 42 mg/dL >40 [facility] Comment on above: The drugs N-Acetylcy steine and Metamizole may falsely depress this assay. Reference Range HDL <40 mg/dL Low HDL Cholesterol HDL >or= 60 mg/dL High HDL Cholesterol Serum or plasma cholesterol in VLDL measurement (mass/volume)Ordered By: Christopher Noel on 06-17-2022 Cholesterol in VLDL [Mass/Vol] [facility] Comment on above: Test not performed Serum or plasma creatinine m easurement (mass/volume)Ordered By: Christopher Noel on 06-17-2022 Creatinine [Mass/Vol] 1.19 mg/dL 0.55-1.02 [facility] Comment on above: The validity of the calculated GFR & GFRAA in patients over 70 years has not been determined. Clinical correlation is essential. Serum or plasma low density lipoprotein (LDL) cholesterol measurement (mass/volume)Ordered By: Christopher Noel on 06-17-2022 Cholesterol in LDL [Mass/Vol] [facility] Comment on above: Test not performed Serum or plasma urea nitroge n measurement (mass/volume)Ordered By: Christopher Noel on 06-17-2022 Urea nitrogen [Mass/Vol] 19 mg/dL 7-18 [facility] Thin prep Papanicolaou smear with manual screeningOrdered By: Christopher Noel on 06-17-2022 Thin prep Papanicolaou smear with manual screening 27 U/L 15-37 [facility] Thin prep Papanicolaou smear with manual screening 7 5-15 [facility] Office Visit (Urgent Care)on 06-04-2022 Follow-up visit Diagnoses/Problems Assessed Sore throat (462) (J02.9) Acute cough (786.2) (R05.1) Viral syndrome (079.99) (B34.9) Orders Acute cough IO BD Veritor Triplex Ag Test; Status:Resulted - Requires Verification; Done: 04Jun2022 05:12PM Performed:In Office; Due:02Sep2022; Last Updated By:Rufina Jordan; 06/04/2022 5:12:19 PM;Ordered; For:Acute cough; Ordered By:Ariana Johnson; Sore throat Start: Ventolin HFA 108 (90 Base) MCG/ACT Inhalation Aerosol Solution (Albuterol Sulfate HFA); INHALE 1 TO 2 PUFFS EVERY 4 TO 6 HOURS NEEDED Rx By: Ariana Johnson; Dispense: 0 Days ; #:1 X 18 GM Inhaler; Refill: 0;For: Sore throat; JOSE LUIS = N; Verified Transmission to [facility]; Last Updated By: Hina Eller; 06/04/2022 5:11:22 PM IO Rapid Strep; Status:Resulted - Requires Verification,Retros pective Authorization; Done: 04Jun2022 04:47PM Performed:In Office; Due:02Sep2022; Last Updated By:Rufina Jordan; 06/04/2022 4:47:17 PM;Ordered; For:Sore throat; Ordered By:Ariana Johnson; Viral syndrome Start: Benzonatate 200 MG Oral Capsule; TAKE 1 CAPSULE 3 TIMES DAILY OR ONLY AT BEDTIME NEEDED FOR COUGH Rx By: Ariana Johnson; Dispense: 5 Days ; #:15 Capsule; Refill: 0;For: Viral syndrome; JOSE LUIS = N; Sent To: [facility] Patient Discussion/Summary Your strep test was negative. Your COVID test was negative. Your flu test was negative. No evidence of a bacterial infection on today's exam. You have a viral illness. Take prescribed medication as directed. May take [id number] cough and cold medications as needed. Consult a pharmacist if necessary. Follow-up with your primary care physician. History of Present Illness 66-year-old female here with a 4-day history of chills, nasal congestion, sore throat, and cough. She denies any fever, body aches, chest pain, shortness of breath, vomiting, diarrhea or other systemic complaints. Has been taking some herbal remedies and using some oils with some relief. She states she is feeling better but the cough persists. Did receive the COVID and the flu vaccine. Did a home COVID test 4 days ago which was negative. All other review of systems is negative for the chief complaint Active Problems Problems Adult hypothyroidism (244.9) (E03.9) Benign essential hypertension (401.1) (I10) Body mass index (BMI) of 40.0 to 44.9 in adult (V85.41) (Z68.41) Breast cancer screening (V76.10) (Z12.39) cat 1 neg 09/2019 Colon cancer screening (V76.51) (Z12.11) 10/20/2019 Dr.David Ford-> diverticula, tortuous colon, polyp b9 Elevated fasting blood sugar (790.21) (R73.01) Encounter for immunization (V03.89) (Z23) Mixed hyperlipidemia (272.2) (E78.2) Screening cholesterol level (V77.91) (Z13.220) Screening for blood disease (V78.9) (Z13.0) Screening for diabetes mellitus (V77.1) (Z13.1) Sore throat (462) (J02.9) Surgical History Problems History of Appendectomy History of Cholecystectomy History of Hysterectomy due to heavy bleeding, no cancer History of Tonsillectomy with adenoidectomy History of Tubal ligation bilateral Family History Mother Family history of diabetes mellitus (V18.0) (Z83.3) Father Family history of diabetes mellitus (V18.0) (Z83.3) Social History Problems Consumes alcohol occasionally (V49.89) (Z78.9) Consumes caffeine from tea (V49.89) (Z78.9) Does not use illicit drugs (V49.89) (Z78.9) Former smoker (V15.82) (Z87.891) Cessationin 1991 Patient consumes caffeinated coffee (V49.89) (Z78.9) Allergies Medication Ceclor Recorded By: Melina Vuong; 07/07/2019 1:15:58 PM Current Meds Medication NameInstruction Candesartan Cilexetil 8 MG Oral TabletTAKE 1 TABLET BY MOUTH EVERY DAY hydroCHLOROthiazide 25 MG Oral TabletTAKE 1 TABLET BY MOUTH EVERY MORNING Levothyroxine Sodium 100 MCG Oral Tablettake 1 tablet by mouth once daily ProAir HFA 108 (90 Base) MCG/ACT AERSinhale 2 (TWO) puffs BY MOUTH EVERY 4 HOURS NEEDED for bronchospasm Vitals Vital Signs Recorded: 04Jun2022 04:32PM Ojfudoisejz04.3 F Heart Uwhb615 Qkhdcyhbtdt11 Prmwkhju594 Vrkdenlgy57 Height5 ft 3 in Okymjg893 lb BMI Xjuoahzxwg55.81 kg/m2 BSA Calculated2.07 Tobacco Useb) No PHQ-2 #1. Over the last 2 weeks have you felt down, depressed or hopeless? (If yes, answer PHQ-9 below)No PHQ-2 #2. Over the last 2 weeks have you felt little interest or pleasure in doing things? (If yes, answer PHQ-9 below)No Falls Screening (Age 18+)a) No falls within the last year O2 Rpvroeipxj44 Pain Scale0 Physical Exam She is alert, pleasant, in no distress. Vitals are stable. HEENT: TMs are patent and clear bilaterally, no erythema, landmarks are visualized. Mucosa pink and moist. Pharynx is without erythema, edema, or exudate. Neck is supple without adenopathy. Heart regular. Lungs are clear, no rales, rhonchi, or wheezes. No retractions. Skin is without rash. Results/Data IO BD [employer]plex Ag [id number] 05:12PAriana Tavarez (more content not included)... Normal [employer] Clinical Summary: RomiejenaroChelle alaniz 06-11-2021 MC25 OP Hand Invalid Interpretation Code [facility] Work Phone: Office Visit: New - 1st visi t with practice, Rm:on 06-11-2021 NEGATED: Highlighted rowTobacco smoking status Tobacco smoking status Invalid Interpretation Code [facility] Work Phone: Complete Blood Count + Diffe ange 05-23-2020 Basophils (Bld) [#/Vol] 0.03 {x10E9/L} See Below [facility] Work Phone: Comment on above: Reference Range: 0.0 0 - 0.10 Basophils/100 WBC (Bld) 0.5 % 0.0 - 2.0 [facility] Work Phone: Eosinophils (Bld) [#/Vol] 0.19 {x10E9/L} See Below [facility] Work Phone: Comment on above: Reference Range: 0.0 0 - 0.70 Eosinophils/100 WBC (Bld) 3.2 % 0.0 - 6.0 [facility] Work Phone: Erythrocyte distribution width (RBC) [Ratio] 13.5 % See Below [facility] Work Phone: Comment on above: Reference Range: 11. 5 - 14.5 Hematocrit (Bld) [Volume fraction] 46.6 % above high threshold See Below [facility] Work Phone: Comment on above: Reference Range: 36. 0 - 46.0 Hemoglobin (Bld) [Mass/Vol] 15.4 g/dL See Below [facility] Work Phone: Comment on above: Reference Range: 12. 0 - 16.0 Lymphocytes (Bld) [#/Vol] 1.45 {x10E9/L} See Below [facility] Work Phone: Comment on above: Reference Range: 1.2 0 - 4.80 Lymphocytes/100 WBC (Bld) 24.2 % See Below [facility] Work Phone: Comment on above: Reference Range: 13. 0 - 44.0 MCHC (RBC) [Mass/Vol] 33.0 g/dL See Below [facility] Work Phone: Comment on above: Reference Range: 32. 0 - 36.0 MCV (RBC) [Entitic vol] 90 fL 80 - 100 [facility] Work Phone: Monocytes (Bld) [#/Vol] 0.40 {x10E9/L} See Below [facility] Work Phone: Comment on above: Reference Range: 0.1 0 - 1.00 Monocytes/100 WBC (Bld) 6.7 % 2.0 - 10.0 [facility] Work Phone: Neutrophils (Bld) [#/Vol] 3.90 {x10E9/L} See Below [facility] Work Phone: Comment on above: Reference Range: 1.2 0 - 7.70 Neutrophils/100 WBC (Bld) 65.1 % See Below [facility] Work Phone: Comment on above: Reference Range: 40. 0 - 80.0 Platelets (Bld) [#/Vol] 243 {x10E9/L} 150 - 450 [facility] Work Phone: RBC (Bld) [#/Vol] 5.17 {x10E12/L} See Below [facility] Work Phone: Comment on above: Reference Range: 4.0 0 - 5.20 WBC (Bld) [#/Vol] 0.0 {/100_WBC} 0.0-0.0 [facility] Work Phone: WBC (Bld) [#/Vol] 6.0 {x10E9/L} 4.4 - 11.3 [facility] Work Phone: Complete Blood Count + Differential 0.3 % 0.0 - 0.9 [facility] Work Phone: Comment on above: Immature Granulocyte Count (IG) includes promyelocytes, myelocytes and metamyelocytes but does not include bands. Percent differential counts (%) should be interpreted in the context of the absolute cell counts (cells/L). Lipid Panelon 05-23-2020 Cholesterol [Mass/Vol] 192 mg/dL 0 - 199 [facility] Work Phone: Comment on above: . AGE DESIRABLE BORD FRANCOISE HIGH HIGH 0-19 Y 0 - 169 170 - 199 >/= 200 20-24 Y 0 - 189 190 - 224 >/= 225 >24 Y 0 - 199 200 - 239 >/= 240 All ranges are based on fasting samples. Specific therapeutic targets will vary based on patient-specific cardiac risk.. Pediatric guidelines reference:Pediatrics 2011, 128(S5). Adult guidelines reference: NCEP ATPIII Guidelines, ANJALI 2001, 258:2486-97. Venipuncture immediately after or during the administration of Metamizole may lead to falsely low results. Testing should be performed immediately prior to Metamizole dosing. Cholesterol in HDL [Mass/Vol] 43.0 mg/dL [facility] Work Phone: Comment on above: . AGE VERY LOW LOW N ORMAL HIGH 0-19 Y < 35 < 40 40-45 ---- 20-24 Y ---- < 40 >45 ---- >24 Y ---- < 40 40-60 >60. Cholesterol in LDL [Mass/Vol] 120 mg/dL above high threshold 0 - 99 [facility] Work Phone: Comment on above: . NEAR BORD AGE MIREYA RABLE OPTIMAL HIGH HIGH VERY HIGH 0-19 Y 0 - 109 --- 110-129 >/= 130 ---- 20-24 Y 0 - 119 --- 120-159 >/= 160 ---- >24 Y 0 - 99 100-129 130-159 160-189 >/=190. Cholesterol.total/Chol esterol in HDL [Mass ratio] 4.5 {ratio} [facility] Work Phone: Comment on above: REF VALUESDESIRABLE < 3.4HIGH RISK > 5.0 Triglyceride [Mass/Vol] 145 mg/dL 0 - 149 [facility] Work Phone: Comment on above: . AGE DESIRABLE BORD FRANCOISE HIGH HIGH VERY HIGH 0 D-90 D 19 - 174 ---- ---- ----91 D- 9 Y 0 - 74 75 - 99 >/= 100 ---- 10-19 Y 0 - 89 90 - 129 >/= 130 ---- 20-24 Y 0 - 114 115 - 149 >/= 150 ---- >24 Y 0 - 149 150 - 199 200- 499 >/= 500. Venipuncture immediately after or during the administration of Metamizole may lead to falsely low results. Testing should be performed immediately prior to Metamizole dosing. Lipid Panel 29 mg/dL 0 - 40 [facility] Work Phone: Metabolic Panelon 05-23-2020 ALP [Catalytic activity/Vol] 73 U/L 33 - 136 [facility] Work Phone: Anion gap [Moles/Vol] 17 mmol/L 10 - 20 [facility] Work Phone: Bilirubin [Mass/Vol] 0.6 mg/dL 0.0 - 1.2 [facility] Work Phone: Calcium [Mass/Vol] 10.0 mg/dL 8.6 - 10.6 [facility] Work Phone: Chloride [Moles/Vol] 102 mmol/L 98 - 107 [facility] Work Phone: CO2 [Moles/Vol] 27 mmol/L 21 - 32 [facility] Work Phone: Creatinine [Mass/Vol] 1.20 mg/dL above high threshold See Below [facility] Work Phone: Comment on above: Reference Range: 0.5 0 - 1.05 Glucose [Mass/Vol] 105 mg/dL above high threshold 74 - 99 [facility] Work Phone: Potassium [Moles/Vol] 4.3 mmol/L 3.5 - 5.3 [facility] Work Phone: Protein [Mass/Vol] 6.7 g/dL 6.4 - 8.2 [facility] Work Phone: Sodium [Moles/Vol] 142 mmol/L 136 - 145 [facility] Work Phone: Urea nitrogen [Mass/Vol] 23 mg/dL 6 - 23 [facility] Work Phone: Otheron 05-23-2020 Albumin BCP dye [Mass/Vol] 4.5 g/dL 3.4 - 5.0 [facility] Work Phone: ALT With P-5'-P [Catalytic activity/Vol] 27 U/L 7 - 45 [facility] Work Phone: Comment on above: Patients treated wit h Sulfasalazine may generate falsely decreased results for ALT. AST With P-5'-P [Catalytic activity/Vol] 27 U/L 9 - 39 [facility] Work Phone: 45 {mL/min/1.73m2} Abnormal >60 [facility] Work Phone: 54 {mL/min/1.73m2} Abnormal >60 [facility] Work Phone: Comment on above: CALCULATIONS OF FELICE MATED GFR ARE PERFORMED USING THE MDRD STUDY EQUATION FOR THE IDMS-TRACEABLE CREATININE METHODS. CLIN CHEM 2007;53:766-72 Thyroidon 05-23-2020 TSH Qn 2.00 {mIU/L} See Below [facility] Work Phone: Comment on above: Reference Range: 0.4 4 - 3.98 TSH testing is performed using different testing methodology at [facility] than at other [facility]. Direct result comparisons should only be made within the same method. Otheron 10-14-2019 [facility] Vital Signs Date Time Vital Sign Value Performing Clinician Facility 06-17-2022 14:59-0500 Body height 160.[address] [facility] 06-17-2022 14:59-0500 Body mass index (BMI) [Ratio] 42.1 kg/m2 [facility] 06-17-2022 14:59-0500 Body temperature 97.2 [degF] [facility] 06-17-2022 14:59-0500 Body weight 107.[address] [facility] 06-17-2022 14:59-0500 Diastolic blood pressure 80 mm[Hg] [facility] 06-17-2022 14:59-0500 Heart rate 61 /min [facility] 06-17-2022 14:59-0500 Respiratory rate 18 /min [facility] 06-17-2022 14:59-0500 SaO2% (BldA) [Mass fraction] 95 % [facility] 06-17-2022 14:59-0500 Systolic blood pressure 130 mm[Hg] [facility] NEGATED: Highlighted [id number] 12:07-0500 Body height 162.56 cm Daisy Oleary RN [facility] Work Phone: NEGATED: Highlighted [id number] 12:07-0500 Body height 163 cm Daisy Oleary RN [facility] Work Phone: NEGATED: Highlighted [id number] 12:07-0500 Body mass index (BMI) [Ratio] 41 kg/m2 Daisy Oleary RN [facility] Work Phone: NEGATED: Highlighted [id number] 12:07-0500 Body weight 107.96 kg Daisy Oleary RN [facility] Work Phone: NEGATED: Highlighted [id number] 12:07-0500 Body weight 108 kg Daisy Oleary RN [facility] Work Phone: Encounters Encounter Date Encounter Type Care Provider Facility Start: 10-02-2023 End: 10-02-2023 ambulatory Christopher Noel NP Facility:[facility] Start: 11-06-2022 Documentation procedure Mammog jayne Coordinator [facility] Start: 11-06-2022 Letter encounter Mammography Coordinator [facility] Department Start: 11-06-2022 ambulatory CHRISTOPHER NOEL Facil ity:[facility] Start: 11-06-2022 End: 11-06-2022 Subsequent hospital visit by physician Screen/Diagnostic Mammo 1 [facility] Work Phone: Mammography Comment on above: Encounter for screen ing mammogram for malignant neoplasm of breast [Z12.31] Start: 06-17-2022 End: 06-17-2022 ambulatory [facility] Work Phone: Start: 06-17-2022 End: 06-17-2022 Patient encounter procedure [facility]-Laboratory, Specimen Start: 06-04-[address] Louise Reyes Facility:[id number] Start: 11-20-2020 AUDIT Louise Moss sko Work Phone: [facility] Work Phone: Start: 05-24-2020 Patient encounter procedure Louise Mesko [facility] Work Phone: Start: 01-09-2020 Patient encounter procedure Louise Amy [facility] Work Phone: Start: 11-23-2019 Patient encounter procedure Louisegoran Reyes [facility] Work Phone: Start: 10-14-2019 End: 10-14-2019 Subsequent hospital visit by physician Screen/Diagnostic Mammo [facility] Work Phone: Mammography Comment on above: Encounter for other screening for malignant neoplasm of breast [Z12.39] Start: 07-07-2019 Patient encounter procedure Louise Amy [facility] Work Phone: Procedures Date Procedure Procedure Detail Performing Clinician Start: 11-06-2022 End: 11-06-2022 Screening mammography bi 2-view breast inc cad Christopher Noel MANAGER [employer] ARCHITECT Work Phone: Start: 06-11-2021 End: 06-11-2021 BP scrn no perf at interval Jimmie Silveira MD Work Phone: Start: 06-11-2021 End: 06-11-2021 Calc BMI abv up kenn f/u Jimmie alberto MD Work Phone: Start: 06-11-2021 End: 06-11-2021 Current tobacco non-user cad cap copd pv dm Jimmie Silveira MD Work Phone: Start: 06-11-2021 End: 06-11-2021 Docrev cur meds by jake Silveira MD Work Phone: Start: 06-11-2021 End: 06-11-2021 Pain neg no plan Jimmie Silveira MD Work Phone: Start: 06-11-2021 End: 06-11-2021 Patient encounter procedure Jimmie Silveira MD Work Phone: Start: 06-11-2021 End: 06-11-2021 Radex hand minimum 3 views Jimmie briceño MD Work Phone: Start: 10-14-2019 Screening mammograph y bi 2-view breast inc cad [facility] Provider Start: 10-14-2019 Mammography [facility] Appendectomy Louise Mesko Bilateral tubal ligation Jordan phanie Mesko Cholecystectomy Louise Me sko Hysterectomy Louise Mesko Comment on above: due to heavy bleedin g, no cancer; Tonsillectomy and adenoidectomy Louise Mesko NEGATED: Highlighted rowStart: 06-11-2021 End: 06-11-2021 Documentation of current medications Daisy Oleary RN Plan of Treatment Date Care Activity Detail Author Start: 12-21-2023 LIPID SCREEN LIPID SCREEN [facility] Start: 11-07-2023 Mammography MAMMOGRAM [facility] Start: 12-26-2022 Influenza vaccination INFLUENZA (#1) [facility] Start: 04-27-2022 ADVANCE DIRECTIVE DISCUSSION ADVANCE DIRECTIVE DISCUSSION [facility] Start: 04-27-2022 DEPRESSION ASSESSMENT DEPRESSION ASSESSMENT [facility] Start: 12-20-2021 DIABETES SCREEN DIABETES SCREEN [facility] Start: 09-10-2021 End: 09-10-2021 Patient encounter procedure Appointment [facility] Work Phone: Start: 06-11-2021 End: 06-11-2021 Patient encounter procedure Appointment [facility] Work Phone: Start: 05-23-2021 COVID-19 VACCINE (4 - Pfizer series) COVID-19 VACCINE (4 - Pfizer series) [facility] Start: 11-26-2020 PHYSICAL, Provider: Louise Reyes, Status: Pen, Time: 9:50 AM PHYSICAL, Provider: Louise Reyes, Status: Pen, Time: 9:50 AM [facility] Work Phone: Start: 10-13-2020 Mammography MAMMOGRAM [facility] Start: 12-27-2019 Influenza vaccination INFLUENZA (Season Ended) [facility] Start: 11-03-2019 BONE DENSITY BONE DENSITY [facility] Start: 11-03-2019 PNEUMOCOCCAL: 65+ (1 - PCV) PNEUMOCOCCAL: 65+ (1 - PCV) [facility] Start: 2004 SHINGRIX VACCINE (1 of 2) SHINGRIX VACCINE (1 of 2) [facility] Start: 2004 Tuberculosis screening COLORECTAL CANCER SCREENING,SEE MODIFIER [facility] Start: 11-03-1999 COLOGUARD (FIT-DNA) COLOGUARD (FIT-DNA) [facility] Start: 11-03-1999 Colonoscopy COLONOSCOPY [facility] Start: 11-03-1999 COLORECTAL CANCER SCREENING COLORECTAL CANCER SCREENING [facility] Start: 11-03-[address] COLONOGRAPHY [facility] Start: 11-03-1999 FECAL OCCULT BLOOD FECAL OCCULT BLOOD [facility] Start: 11-03-1999 SIGMOIDOSCOPY SIGMOIDOSCOPY [facility] Start: 1984 HPV TESTING HPV TESTING [facility] Start: 11-03-1975 PAP TESTING PAP TESTING [facility] Start: 1973 Urine microalbumin profile DTAP,TDAP,TD (1 - Tdap) [facility] Start: 1972 HEPATITIS C SCREENING HEPATITIS C SCREENING [facility] Start: 1972 HIV SCREENING HIV SCREENING [facility] Immunizations Immunization Date Immunization Notes Care Provider Stephanie leyva 01-09-2020 zoster vaccine recombinant; Translations: [Shingrix 50 MCG Intramuscular Suspension Reconstituted] Louise Reyes [facility] Work Phone: Comment on above: Series: 01-09-2020 influenza, high dose seasonal, preservative-free; Translations: [Fluzone High-Dose 0.5 ML Intramuscular Suspension Prefilled Syringe] [facility] Work Phone: Comment on above: Series: 11-23-2019 pneumococcal conjuga te vaccine, 13 valent; Translations: [Prevnar 13 Intramuscular Suspension] [facility] Work Phone: Comment on above: Series: 11-23-2019 zoster vaccine recombinant; Translations: [Shingrix 50 MCG Intramuscular Suspension Reconstituted] [facility] Work Phone: Comment on above: Series: Payers Date Payer Category Payer Self-pay [id number] 2020 Unknown 2020 Unknown [id number] 2008 Unknown STAS JIMÉNEZ PREF ERRED EPO [id number] 2008-Present EPO [id number] 1954 Unknown [id number] Unknown [id number] Social History Date Type Detail Facility [facility] Start: 1955 Sex Assigned At [facility] file [facility] Exposure to SARS-CoV -2 (event) Not sure [facility] Start: 04-01-2020 Former smoker Former smoker [facility] Work Phone: Comment on above: Cessationin 1991; Start: 07-07-2019 [facility] if ever smoked [facility] Start: 1955 Sex Assigned At Female [facility] Start: 04-01-2020 Area Deprivation Index [facility] National Score (1-100), lower number is lower risk Not on file [facility] NEGATED: Highlighted row - - [facility] Work Phone: NEGATED: Highlighted rowStart: 06-11-2021 End: 06-11-2021 Alcohol use Alcohol use [facility] Work Phone: NEGATED: Highlighted rowStart: 06-11-2021 End: 06-11-2021 Details of drug misuse behavior Details of drug misuse behavior [facility] Work Phone: NEGATED: Highlighted rowStart: 06-11-2021 End: 06-11-2021 Assertion Former smoker [facility] Work Phone: Functional Status Date Assessment Result Facility NEGATED: Highlighted row Functional performance Functional status health issues are not documented Disease [facility] Work Phone: Mental Status Date Assessment Result Facility NEGATED: Highlighted row Cognitive function [Interpretation] Cognitive status health issues are not documented Disease [facility] Work Phone: Note 11-06-2022 Letter - Coordinator, Mammography - 11/06/2022 9:22 PM EDT Note Date & Type Note Facility 11-06-2022 Miscellaneous Notes Formattin g of this note might be different from the original. November 07, 2022 PID: [id number] Nara Vega [address] [place] [address] Dear Ms. Vega, We are pleased to inform you that the results of your recent breast imaging exam on 11/06/2022 are normal. Early detection of cancer is very important. We also understand recommendations regarding breast cancer screening are controversial. Please discuss with your primary care provider which strategy is best for you and whether a mammogram is right for you. Your imaging studies and report will be kept on file at [facility] as part of your permanent medical record and are available for your continuing care. Thank you for allowing us to help in meeting your health care needs. Sincerely, Dr. Hooker Interpreting Radiologist [facility] (Normal over 40) documented in this encounter [facility] Progress note 11-06-2022 Note Date & Type Note Facility 11-06-2022 Note HNO ID: [id number] Author: RACHEAL Garcia Service: Radiology Author Type: Technologist Type: Progress Notes Filed: 11/06/2022 9:54 AM Note Text: Radiology Service Progress Note PATIENT NAME: Nara Vega DATE OF SERVICE: November 06, 2022 TIME: 9:53 AM PATIENT IDENTITY VERIFICATION COMPLETED USING TWO (2) IDENTIFIERS: Name and Date of confirmed by patient verbally. FALL SCREENING: Has the patient had 2 falls in the last year or 1 fall with injury or currently using an Ambulatory Assistive Device (Walker, Cane, Wheelchair, Crutches, etc.)? No PATIENT GENDER DATA: Female. status: : No status: NO. PATIENT RELEVANT IMPLANT DATA REVIEWED: Not Applicable RADIOLOGY DEPARTMENT: Mammography PERIPHERAL IV DATA: Not applicable SIGNED BY: Anjelica Estrada RT November 06, 2022 9:53 AM [facility] History of Present illness Narrative 11-06-[address] - 11/06/2022 9:40 AM EDT Note Date & Type Note Facility 11-06-2022 History of Presen t illness Narrative Radiology Service Progress Note PATIENT NAME: Nara Vega DATE OF SERVICE: November 06, 2022 TIME: 9:53 AM PATIENT IDENTITY VERIFICATION COMPLETED USING TWO (2) IDENTIFIERS: Name and Date of confirmed by patient verbally. FALL SCREENING: Has the patient had 2 falls in the last year or 1 fall with injury or currently using an Ambulatory Assistive Device (Walker, Cane, Wheelchair, Crutches, etc.)? No PATIENT GENDER DATA: Female. status: : No status: NO. PATIENT RELEVANT IMPLANT DATA REVIEWED: Not Applicable RADIOLOGY DEPARTMENT: Mammography PERIPHERAL IV DATA: Not applicable SIGNED BY: Anjelica Estrada RT November 06, 2022 9:53 AM documented in this encounter [facility] Instructions 06-11-2021 Note Date & Type Note Facility 06-11-2021 Instructions Patient advised to follow-up with Primary Care Physician for BMI management. [facility] Work Phone: Evaluation note Note Date & Type Note Facility Evaluation note There may be informa tion available, but it has not been provided by the sender. [facility] Work Phone: Evaluation note Note Date & Type Note Facility Evaluation note Diagnosis Onset Date Breast cancer screening by mammogram acute [id number] acute Hypertriglyceridemia acute Hypertension [facility] Work Phone: History of Present Illness * Leslie Coy (Rt), Tech - 10/14/2019 2:40 PM EDT Radiology Service Progress Note PATIENT NAME: Nara Vega DATE OF SERVICE: October 14, 2019 TIME: 2:33 PM PATIENT IDENTITY VERIFICATION COMPLETED USING TWO (2) IDENTIFIERS: Name and Date of confirmedby patient verbally. FALL SCREENING: Has the patient had 2 falls in the last year or 1 fall with injury or currently using an Ambulatory Assistive Device (Walker, Cane, Wheelchair, Crutches, etc.)? No PATIENT GENDER DATA: Female. status: : No status: NO. PATIENT RELEVANT IMPLANT DATA REVIEWED: Not Applicable RADIOLOGY DEPARTMENT: Mammography PERIPHERAL IV DATA: Not applicable SIGNED BY: RT Sandy October 14, 2019 2:33 PM documented in this encounter Family History No Family History Records Found Mother Name Dates Details Family history of diabetes m ellitus(V18.0, Z83.3) Status:Active Father Name Dates Details Family history of diabetes m ellitus(V18.0, Z83.3) Status:Active Mother Name Dates Details Family history of diabetes m ellitus(V18.0, Z83.3) Status:Active Father Name Dates Details Family history of diabetes m ellitus(V18.0, Z83.3) Status:Active Mother Name Dates Details Family history of diabetes m ellitus(V18.0, Z83.3) Status:Active Father Name Dates Details Family history of diabetes m ellitus(V18.0, Z83.3) Status:Active Mother Name Dates Details Family history of diabetes m ellitus(V18.0, Z83.3) Status:Active Father Name Dates Details Family history of diabetes m ellitus(V18.0, Z83.3) Status:Active Mother Name Dates Details Family history of diabetes m ellitus(V18.0, Z83.3) Status:Active Father Name Dates Details Family history of diabetes m ellitus(V18.0, Z83.3) Status:Active Unknown Family Member Name Dates Details Family history of diabetes m ellitus: Father, Mother(V18.0, Z83.3) Status:Active Relationship Condition Age at Onset Recorded Date/T sofie Not Specified Disorder of liver Unknown Diabetes mellitus Unknown father Malignant neoplasm of colon Unknown Chief Complaint Chief Complaint Description Start Date left hand swelling Preliminary chief co mplaint data, not yet signed by the author as of Advance Directives There may be information available, but it has not been provided by the sender. No Advanced Directives Records FoundNo Advanced Directives Records FoundNo Advanced Directives Records FoundNo Advanced Directives Records FoundNo Advanced Directives Records Found Summary Purpose Chief Complaint and Reason for Visit Chief Complaint medication refills Reason for Visit Breast cancer screen ing by mammogram [id number] Hypertriglyceridemia Hypertension Additional Source Comments Source Comments (unrecognize d section and content) In the event this informatio n is protected by the Federal Confidentiality of Alcohol and Drug Abuse Patient Records regulations: The Federal rules restrict any use of the information to criminally investigate or prosecute any alcohol or drug abuse patient.[facility] the event this information is protected by the Federal Confidentiality of Alcohol and Drug Abuse Patient Records regulations: The Federal rules restrict any use of the information to criminally investigate or prosecute any alcohol or drug abuse patient.[facility] the event this information is protected by the Federal Confidentiality of Alcohol and Drug Abuse Patient Records regulations: The Federal rules restrict any use of the information to criminally investigate or prosecute any alcohol or drug abuse patient.[facility] Reason for Visit (unrecogniz ed section and content) Reason For Visit Description New - 1st visit with practice Preliminary reason f or visit data, not yet signed by the author as of left hand swelling INFORMATION SOURCE (unrecogn ized section and content) DATE CREATED AUTHOR 06/05/2022 [facility] DATE CREATED AUTHOR AUTHOR'S ORGANIZ ATION 06/05/2022 [employer] DATE CREATED AUTHOR AUTHOR'S ORGANIZ ATION 11/07/2022 [facility] DATE CREATED AUTHOR AUTHOR'S ORGANIZ ATION 11/11/2022 [facility] DATE CREATED AUTHOR AUTHOR'S ORGANIZ ATION 10/14/2023 [facility] Care Teams (unrecognized sec tion and content) Team Status: Active Member Role Status Dates Christopher Noel HEAVY DUTY PRESS OPERATOR, HEAVY DUTY PRESS OPERATOR-C Family Provider Active Christopher Noel HEAVY DUTY PRESS OPERATOR, HEAVY DUTY PRESS OPERATOR-C Primary Care Provider Active Team Status: Inactive Member Role Status Dates hCristopher Noel HEAVY DUTY PRESS OPERATOR, HEAVY DUTY PRESS OPERATOR-C Primary Care Pr ovider, Attending Provider, Referring Provider Active Team Status: Inactive Member Role Status Dates Christopher Noel HEAVY DUTY PRESS OPERATOR, HEAVY DUTY PRESS OPERATOR-C Primary Care Provider, Attend ing Provider Active Activated Sludge Operator Relationship Specialty Start Date End Date Christopher Noel, MANAGER [employer]IB[employer] [address] [place] [address] PCP - General Family Medicine 05/17/21 Activated Sludge Operator Relationship Specialty Start Date End Date Christopher Noel, MANAGER TRADE[employer]SALES ARCHITECT [address] [place] [address] PCP - General Family Medicine 05/17/21 Goals (unrecognized section and content) Goals may be documented in a n alternate section FOR RECORDS PERTAINING TO PATIENTS WHO ARE OR HAVE BEEN ENROLLED IN A CHEMICAL DEPENDENCY/SUBSTANCEABUSE PROGRAM, SOME INFORMATION MAY BE OMITTED. This clinical summary was aggregated from multiple sources. Caution should be exercised in using it in the provision of clinical care. This summary normalizes information from multiple sources, and as a consequence, information in this document may materially change the coding, format and clinical context of patient data. In addition, data may be omitted in some cases. CLINICAL DECISIONS SHOULD BE BASED ON THE PRIMARY CLINICAL RECORDS. [facility] [employer] [facility]. provides no warranty or guarantee of the accuracy or completeness of information in this document.
[2025-02-20 22:38] LABS: Hematocrit 45.0 % (37-47); Hemoglobin 14.9 g/dL (12.0-15.0); Immature Granulocytes Count 0.050 X10^3/uL (0.0-0.0); Mean Corp Hgb Conc 33.1 g/dL (32-36); Mean Corpuscular Volume 87.7 fL (81-99); Mean Platelet Vol. 10.7 fl (6.2-12.0); NRBC Flagged by Analyzer 0 % (0-5); Platelet Count 280 K/mm3 (150-450); RBC Distribution Width CV 13.2 % (11.6-14.6); RBC Distribution Width SD 42.3 fl (35.1-43.9); Red Blood Count 5.13 M/mm3 (4.2-5.4); White Blood Count 8.9 K/mm3 (4.4-11.0)
[2025-02-20 23:00] LABS: AST(SGOT) 25 U/L (<=31); Alanine Aminotransfer ALT/SGPT 22 U/L (<=34); Albumin, Serum 4.2 g/dL (3.4-4.8); Alkaline Phosphatase 99 U/L (35-104); Anion Gap 9 (5-15); BUN 16 mg/dL (4-19); BUN/Creat Ratio 17.1 RATIO (10-20); Calcium,Total 9.5 mg/dL (7.6-11.0); Carbon Dioxide 27.3 mmol/L (21.0-32.0); Chloride 105 mmol/L (98-108); Cholesterol 182 mg/dL (<=200); Globulin 2.7 g/dL (2.2-4.2); Glucose 192 mg/dL (70-99); Low Density Lipoprotein Calc. 94 mg/dL; Potassium 4.3 mmol/L (3.3-5.1); Triglycerides 266 mg/dL; Very Low Density Lipoprotein 53 mg/dL (5-40); cholesterol:hdl ratio screen 4.16
== END | disposition home or self-care (01) ==
PROVIDERS: PCP Nurse Practitioner; Referring Provider Nurse Practitioner; Visit Provider Nurse Practitioner
DX: Z00.00 Encounter for general adult medical examination without abnormal findings (principal); E11.65 Type 2 diabetes mellitus with hyperglycemia; E78.1 Pure hyperglyceridemia; E06.3 Autoimmune thyroiditis
CPT/HCPCS: 80053; 80061; 83036; 84443; 85025

== ENCOUNTER → 2025-03-15 | Outpatient (CLI) | payer BC, SELFPAY ==
--- OUTSIDE RECORDS SUMMARY | 2025-03-15 21:15 | XMS RPT_ITS | CCD ---
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 Louise Reyes Primary Care Dr. ARIANA Alejandre Attending Dr. 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.Christopher CRISTINA Primary Care Provide r CHRISTOPHER NOEL Referring Unavailable CHRISTOPHER NOEL Primary Care Unavailable Christopher Noel Referring Unavailable Christopher Noel Attending Unavailable Christopher Noel Primary Care Unavailable Allergies Allergy Classification Reported Allergen(s) Allergy Type Date of Onset Reaction(s) Facility Cephalosporins (antibiotic) (1 source) Cefaclor; Translations: [Ceclor] Drug Allergy [facility] Work Phone: (7 sources) Cefaclor Drug Allergy 06-11-2021 Itching [facility] Work Phone: (1 source) Cefaclor Drug Allergy 03-10-2018 rash [facility] (1 source) Cefaclor Drug Allergy 03-10-2018 [facility] Repository Medications Current Medications Medication Drug Class(es) Dates Sig (Normalized) Sig (Original) [id number] 200 actuat albuterol 0.09 mg/actuat metered dose [...] 75 MCG PO daily July 05, 2018 12:06pm September 08, 2018 11:06pm Start: 03-10-2018 End: 07-02-2018 [...] Discontinued 1 TABLET PO TWICE A DAY 20 July 04, 2018 11:00pm July 12, 2018 [...] Discontinued 20 MG PO TWICE A DAY 30 July 11, 2018 11:00pm July 19, 2018 11:07pm 2 po bid 4D,1 po bid for 4 D, 1 po qd for 4D 1/2 po qd for2 D Problems Active Problems Problem Classification Problem Date Documented Da te Episodic/Chronic Chronic obstructive pulmonary disease and bronchiectasis (1 source) Bronchitis; Translations: [Bronchitis, not specified as acute or chronic] 07-12-2018 Episodic Diabetes mellitus with complications (1 source) Type II diabetes mellitus uncontrolled; Translations: [Uncontrolled type 2 diabetes mellitus] 05-08-2021 Chronic Diabetes mellitus without complication (1 [...] Interpretation Reference Range Facility CBC W/Diff, Automatedon 10-2 Absolute Lymph 1.46 X10 3/uL Normal 0.83-4.51 [facility] Comment on above: Performed By: #### L 501.9520, L100.0100, L500.4100, L501.9985, L500.4050 #### [facility] [address] [place], [address] Absolute Neut 6.7 X10 3/uL Normal 2.0-7.7 [facility] Comment on above: Performed By: #### L 501.9520, L100.0100, L500.4100, L501.9985, L500.4050 #### [facility] [address] [place], [address] Basophils/100 WBC (Bld) 0.3 % Normal 0-1 [facility] Comment on above: Performed By: #### L 501.9520, L100.0100, L500.4100, L501.9985, L500.4050 #### [facility] [address] [place], [address] Eosinophils/100 WBC (Bld) 2.5 % Normal 0-5 [facility] Comment on above: Performed By: #### L 501.9520, L100.0100, L500.4100, L501.9985, L500.4050 #### [facility] [address] [place], [address] Erythrocyte distribution width (RBC) [Ratio] 13.2 % Normal 11.6-14.6 [facility] Comment on above: Performed By: #### L 501.9520, L100.0100, L500.4100, L501.9985, L500.4050 #### [facility] [address] [place], [address] Hematocrit (Bld) [Volume fraction] 45.0 % Normal 37-47 [facility] Comment on above: Performed By: #### L 501.9520, L100.0100, L500.4100, L501.9985, L500.4050 #### [facility] [address] [place], [address] Hemoglobin (Bld) [Mass/Vol] 14.9 g/dL Normal 12.0-15.0 [facility] Comment on above: Performed By: #### L 501.9520, L100.0100, L500.4100, L501.9985, L500.4050 #### [facility] [address] [place], [address] IG% 0.600 Normal 0.0-0.9 [facility] Comment on above: Result Comment: IG% - Immature Granulocytes (promyelocytes, myelocytes and metamyelocytes) > 1% indicates that a LEFT SHIFT is Present. Performed By: #### L 501.9520, L100.0100, L500.4100, L501.9985, L500.4050 #### [facility] [address] [place], [address] Lymphocytes/100 WBC (Bld) 16.4 % Low 19-41 [facility] Comment on above: Performed By: #### L 501.9520, L100.0100, L500.4100, L501.9985, L500.4050 #### [facility] [address] [place], [address] MCH (RBC) [Entitic mass] 29.0 pg Normal 27.0-32.0 [facility] Comment on above: Performed By: #### L 501.9520, L100.0100, L500.4100, L501.9985, L500.4050 #### [facility] [address] [place], [address] MCHC (RBC) [Mass/Vol] 33.1 g/dL Normal 32-[address] [facility] Comment on above: Performed By: #### L 501.9520, L100.0100, L500.4100, L501.9985, L500.4050 #### [facility] [address] [place], [address] MCV (RBC) [Entitic vol] 87.7 fL Normal 81-99 [facility] Comment on above: Performed By: #### L 501.9520, L100.0100, L500.4100, L501.9985, L500.4050 #### [facility] [address] [place], [address] Monocytes/100 WBC (Bld) 4.5 % Normal 0-10 [facility] Comment on above: Performed By: #### L 501.9520, L100.0100, L500.4100, L501.9985, L500.4050 #### [facility] [address] [place], [address] Neutrophils/100 WBC (Bld) 75.7 % High 47-70 [facility] Comment on above: Performed By: #### L 501.9520, L100.0100, L500.4100, L501.9985, L500.4050 #### [facility] [address] [place], [address] Nucleated RBC (Bld) [#/Vol] 0 10*3/uL Normal 0-5 [facility] Comment on above: Performed By: #### L 501.9520, L100.0100, L500.4100, L501.9985, L500.4050 #### [facility] [address] [place], [address] Platelet mean volume (Bld) [Entitic vol] 10.7 fL Normal 6.2-12.0 [facility] Comment on above: Performed By: #### L 501.9520, L100.0100, L500.4100, L501.9985, L500.4050 #### [facility] [address] [place], [address] Platelets (Bld) [#/Vol] 280 10*3/uL Normal 150-450 [facility] Comment on above: Performed By: #### L 501.9520, L100.0100, L500.4100, L501.9985, L500.4050 #### [facility] [address] [place], [address] RBC (Bld) [#/Vol] 5.13 10*6/uL Normal 4.2-5.4 [facility] Comment on above: Performed By: #### L 501.9520, L100.0100, L500.4100, L501.9985, L500.4050 #### [facility] [address] [place], [address] RDW SD 42.3 fl Normal 35.1-43.9 [facility] Comment on above: Performed By: #### L 501.9520, L100.0100, L500.4100, L501.9985, L500.4050 #### [facility] [address] [place], [address] WBC (Bld) [#/Vol] 8.9 10*3/uL Normal 4.4-11.0 [facility] Comment on above: Performed By: #### L 501.9520, L100.0100, L500.4100, L501.9985, L500.4050 #### [facility] [address] [place], [address] Comprehensive Metabolic Prof rion 02-20-2025 Albumin [Mass/Vol] 4.2 g/dL Normal 3.4-4.8 [facility] Comment on above: Performed By: #### L 501.9520, L100.0100, L500.4100, L501.9985, L500.4050 #### [facility] [address] [place], [address] Albumin/Globulin [Mass ratio] 1.6 {ratio} Normal 0.9-2.4 [facility] Comment on above: Performed By: #### L 501.9520, L100.0100, L500.4100, L501.9985, L500.4050 #### [facility] [address] [place], [address] ALK PHOS 99 U/L Normal 35-104 [facility] Comment on above: Performed By: #### L 501.9520, L100.0100, L500.4100, L501.9985, L500.4050 #### [facility] [address] [place], [address] ALT [Catalytic activity/Vol] 22 U/L Normal <=34 [facility] Comment on above: Performed By: #### L 501.9520, L100.0100, L500.4100, L501.9985, L500.4050 #### [facility] [address] [place], [address] AST [Catalytic activity/Vol] 25 U/L Normal <=31 [facility] Comment on above: Performed By: #### L 501.9520, L100.0100, L500.4100, L501.9985, L500.4050 #### [facility] [address] [place], [address] Bilirubin [Mass/Vol] 0.32 mg/dL Normal 0.00-1.30 [facility] Comment on above: Performed By: #### L 501.9520, L100.0100, L500.4100, L501.9985, L500.4050 #### [facility] [address] [place], [address] BUN/CRE 17.1 RATIO Normal 10-20 [facility] Comment on above: Performed By: #### L 501.9520, L100.0100, L500.4100, L501.9985, L500.4050 #### [facility] [address] [place], [address] Calcium [Mass/Vol] 9.5 mg/dL Normal 7.6-11.0 [facility] Comment on above: Performed By: #### L 501.9520, L100.0100, L500.4100, L501.9985, L500.4050 #### [facility] [address] [place], [address] Chloride [Moles/Vol] 105 mmol/L Normal 98-108 [facility] Comment on above: Performed By: #### L 501.9520, L100.0100, L500.4100, L501.9985, L500.4050 #### [facility] [address] [place], [address] CO2 [Moles/Vol] 27.3 mmol/L Normal 21.0-32.0 [facility] Comment on above: Performed By: #### L 501.9520, L100.0100, L500.4100, L501.9985, L500.4050 #### [facility] [address] [place], [address] Creatinine [Mass/Vol] 0.93 mg/dL Normal 0.70-1.[address] [facility] Comment on above: Performed By: #### L 501.9520, L100.0100, L500.4100, L501.9985, L500.4050 #### [facility] [address] [place], [address] GAP 9 Normal 5-15 [facility] Comment on above: Performed By: #### L 501.9520, L100.0100, L500.4100, L501.9985, L500.4050 #### [facility] [address] [place], [address] GFR/1.73 sq M.predicted among non-blacks MDRD (S/P/Bld) [Vol rate/Area] 66 mL/min/{1.73_m2} Normal >60 [facility] Comment on above: Result Comment: mL/m in/1.73m2 CKD-EPI Creatinine Equation (2020) Performed By: #### L 501.9520, L100.0100, L500.4100, L501.9985, L500.4050 #### [facility] [address] [place], [address] Globulin (S) [Mass/Vol] 2.7 g/dL Normal 2.2-4.2 [facility] Comment on above: Performed By: #### L 501.9520, L100.0100, L500.4100, L501.9985, L500.4050 #### [facility] [address] [place], [address] Glucose [Mass/Vol] 192 mg/dL High 70-99 [facility] Comment on above: Performed By: #### L 501.9520, L100.0100, L500.4100, L501.9985, L500.4050 #### [facility] [address] [place], [address] Potassium [Moles/Vol] 4.3 mmol/L Normal 3.3-5.[address] [facility] Comment on above: Performed By: #### L 501.9520, L100.0100, L500.4100, L501.9985, L500.4050 #### [facility] [address] [place], [address] Sodium [Moles/Vol] 141 mmol/L Normal 133-145 [facility] Comment on above: Performed By: #### L 501.9520, L100.0100, L500.4100, L501.9985, L500.4050 #### [facility] [address] [place], [address] T PROT 6.9 g/dL Normal 5.9-8.4 [facility] Comment on above: Performed By: #### L 501.9520, L100.0100, L500.4100, L501.9985, L500.4050 #### [facility] [address] [place], [address] Urea nitrogen [Mass/Vol] 16 mg/dL Normal 4-19 [facility] Comment on above: Performed By: #### L 501.9520, L100.0100, L500.4100, L501.9985, L500.4050 #### [facility] [address] [place], [address] Hemoglobin A1con 02-20-2025 HbA1c (Bld) [Mass fraction] 6.8 % High <=5.6 [facility] Comment on above: Result Comment: Norm al < 5.7 % Prediabetic 5.7 - 6.4 % Diabetic >or= 6.5 % Please note range changes. Performed By: #### L 501.9520, L100.0100, L500.4100, L501.9985, L500.4050 #### [facility] [address] [place], [address] Lipid Profileon 02-20-2025 CHOL:HDL 4.16 Normal [facility] Comment on above: Performed By: #### L 501.9520, L100.0100, L500.4100, L501.9985, L500.4050 #### [facility] [address] [place], [address] Cholesterol [Mass/Vol] 182 mg/dL Normal <=200 [facility] Comment on above: Result Comment: Chol esterol level, Desirable <200 mg/dL Borderline high cholesterol 200-239 mg/dL High cholesterol >=240 mg/dL Recommendations of the NCEP Adult Treatment Panel for the following risk-cutoff thresholds for the [place] population. Performed By: #### L 501.9520, L100.0100, L500.4100, L501.9985, L500.4050 #### [facility] [address] [place], [address] Cholesterol in HDL [Mass/Vol] 44 mg/dL Normal [facility] Comment on above: Result Comment: Felecia onal Cholesterol Education Program (NCEP) guidelines: <40 mg/dL: Low HDL-cholesterol (major risk factor for CHD) >= 60 mg/dL: High HDL-cholesterol (negative risk factor for CHD) HDL-cholesterol is affected by a number of factors, e.g. smoking, exercise, hormones, sex and age. Performed By: #### L 501.9520, L100.0100, L500.4100, L501.9985, L500.4050 #### [facility] [address] [place], [address] Cholesterol in LDL [Mass/Vol] 94 mg/dL Normal [facility] Comment on above: Result Comment: Bord gomwxz=286-786 mg/dL Higher Bucn=507 mg/dL or greater Pearce Equation 2020 for LDL-C Performed By: #### L 501.9520, L100.0100, L500.4100, L501.9985, L500.4050 #### [facility] [address] [place], [address] Cholesterol in VLDL [Mass/Vol] 53 mg/dL High 5-40 [facility] Comment on above: Performed By: #### L 501.9520, L100.0100, L500.4100, L501.9985, L500.4050 #### [facility] [address] [place], [address] Triglyceride [Mass/Vol] 266 mg/dL High [facility] Comment on above: Result Comment: The drugs N-Acetylcysteine and Metamizole may falsely depress this assay. Normal range: <150 mg/dL Borderline High: 150-199 mg/dL High: 200-499 mg/dL Very High: >500 mg/dL Performed By: #### L 501.9520, L100.0100, L500.4100, L501.9985, L500.4050 #### [facility] [address] [place], [address] Thyroid Stim Hormone (TSH)on 02-20-2025 TSH 2.490 uIU/mL Normal 0.300-4.200 [facility] Comment on above: Performed By: #### L 501.9520, L100.0100, L500.4100, L501.9985, L500.4050 #### [facility] [address] [facility] [place], [address] [facility] [id number] Author: Mammography Coordinator Service: ? Author Type: Physician Type: Letter Filed: 11/10/2022 11:34 PM Note Text: November 07, 2022 PID: [id number] Nara Vega [address] [place] [address] Dear Ms. Vega, We are pleased to [...] report will be kept on file at [facility] as part of your permanent medical record and are available for your continuing care. Thank you for allowing us to help in meeting your health care needs. Sincerely, Dr. Hooker Interpreting Radiologist [facility] (Normal over 40) Normal [facility] SCREENINGon 11-06-2022 ADIS SCREENING * * *Final Report* * * DATE OF EXAM: Nov 06 2022 10:07AM DEVANTE [id number] - [facility] SCREENING / PROCEDURE REASON: z13.21 screening * * * * Physician Interpretation * * * * #[id number] - [facility] SCREENING BILATERAL DIGITAL SCREENING MAMMOGRAM WITH CAD: 11/06/2022 HISTORY: Z13.21 Screening / Screening Mammogram-Patient reports NO symptoms. RESULT: TECHNIQUE: The study was acquired using full field digital technology and interpreted from soft copy. Current study was also evaluated with a Computer Aided Detection (CAD). Comparison is made to exams dated: 06/10/2021 mammogram, 10/14/2019 mammogram, and 08/06/2016 mammogram - [facility]. The tissue of both breasts is predominantly fatty. No significant masses, calcifications, or other findings are seen in either breast. There has been no significant interval change. IMPRESSION: NEGATIVE There is no mammographic evidence of malignancy. A 1 year screening mammogram is recommended. Chevy blanchard/penrad:11/06/2022 21:22:46 Attending Technologist(s): Leslie Coy RT(R)(M), [facility] Mortgage Loan Computation Clerk(s): Anjelica Estrada RT(R)(M), [facility] letter sent: Normal over 40 Mammogram BI-RADS: [...] Health, Family Medicine, and Medical/Surgical Oncology, the [facility] has carefully reviewed the data and [...] their providers when to stop screening mammograms. Marketing Communications Coordinator: Doug Transcribe Date/Time: Nov 06 2022 9:33A Dictated by : CHEVY HOOKER MD This examination was interpreted and the report reviewed and electronically signed by: CHEVY HOOKER MD on Nov 06 2022 9:22PM EST [id number] Normal [facility] Absolute lymphocyte countOrd ered By: Christopher Noel on 06-17-2022 Lymphocytes Auto (Unsp spec) [#/Vol] 1.99 10*3/uL 0.83-4.51 [facility] Basophil percentageOrdered B y: Christopher Noel on 06-17-2022 Basophils/100 WBC (Bld) 0.6 % 0-1 [facility] Bilirubin [Mass/Vol] 0.30 mg/dL 0.20-1.00 [facility] Comment on above: For patients on eltr ombopag therapy, use of Dimension [place] TBIL is not recommended. Chloride [Moles/Vol] 103 mmol/L 98-107 [facility] Cholesterol [Mass/Vol] 196 mg/dL <200 [facility] Comment on above: <200 mg/dL Desirable 200-240 mg/dL Borderline >240 mg/dL High Risk Eosinophils/100 WBC (Bld) 1.6 % 0-5 [facility] Glucose [Mass/Vol] 128 mg/dL 74-106 [facility] Comment on above: Fasting Glucose resu lt greater than or equal to 126 mg/dL suggests DIABETES MELLITUS per A.D.A. criteria. Neutrophils (Bld) [#/Vol] 6.7 10*3/uL 2.0-7.7 [facility] Neutrophils/100 WBC (Bld) 70.7 % 47-70 [facility] Potassium [Moles/Vol] 4.2 mmol/L 3.5-5.[address] [facility] Protein [Mass/Vol] 7.4 g/dL 6.4-8.2 [facility] Sodium [Moles/Vol] 140 mmol/L 136-145 [facility] Triglyceride [Mass/Vol] 423 mg/dL <199 [facility] Comment on above: The drugs N-Acetylcy steine and Metamizole may falsely depress this assay. TRIGLYCERIDE IS GREATER THAN 400 mg/dL. LDL RESULT IS INVALID AND WILL NOT BE REPORTED.Serum Triglycerides Reference Interval Normal <150 mg/dL Borderline high 150 - 199 mg/dL High 200 - 499 mg/dL Very High > or = 500 mg/dL WBC (Bld) [#/Vol] 9.4 10*3/uL 4.4-11.0 [facility] Blood erythrocytes count (nu mber/volume)Ordered By: Christopher Noel on 06-17-2022 RBC (Bld) [#/Vol] 5.34 10*6/uL 4.2-5.4 [facility] Blood hemoglobin measurement (mass/volume)Ordered By: Christopher Noel on 06-17-2022 Hemoglobin (Bld) [Mass/Vol] 15.4 g/dL 12.0-15.0 [facility] Blood lymphocytes/100 leukoc ytesOrdered By: Christopher Noel on 06-17-2022 Lymphocytes/100 WBC (Bld) 21.1 % 19-41 [facility] Blood monocytes/100 leukocyt esOrdered By: Christopher Noel on 06-17-2022 Monocytes/100 WBC (Bld) 5.7 % 0-10 [facility] Blood platelet mean volumeOr dered By: Christopher Noel on 06-17-2022 Platelet mean volume (Bld) [Entitic vol] 11.1 fL 6.2-12.0 [facility] Determination of erythrocyte mean corpuscular volume (MCV)Ordered By: Christopher Noel on 06-17-2022 MCV (RBC) [Entitic vol] 88.6 fL 81-99 [facility] Hematocrit Auto (Bld) [Volum e fraction]Ordered By: Christopher Noel on 06-17-2022 Hematocrit (Bld) [Volume fraction] 47.3 % 37-47 [facility] Laboratory - Chemistry and C hemistry - challengeOrdered By: Christopher Noel on 06-17-2022 ALP [Catalytic activity/Vol] 130 U/L 45-117 [facility] ALT [Catalytic activity/Vol] 33 U/L 13-56 [facility] CO2 [Moles/Vol] 30.0 mmol/L 21.0-32.0 [facility] Globulin (S) [Mass/Vol] 3.6 g/dL 2.2-4.2 [facility] Urea nitrogen/Creatinine [Mass ratio] 16.0 mg/mg 10-20 [facility] - Hematology and Cell countsOrdered By: Christopher Noel on 06-17-2022 Erythrocyte distribution width (RBC) [Entitic vol] 42.1 fL 35.1-43.9 [facility] Erythrocyte distribution width (RBC) [Ratio] 13.1 % 11.6-14.6 [facility] Immature granulocytes/100 WBC (Bld) 0.300 % 0.0-0.9 [facility] Comment on above: IG% - Immature Granu locytes (promyelocytes, myelocytes and metamyelocytes) > 1% indicates that a LEFT SHIFT is Present. MCH (RBC) [Entitic mass] 28.8 pg 27.0-32.0 [facility] Nucleated RBC/100 WBC (Bld) [Ratio] 0 % 0-5 [facility] MCHC Auto (RBC) [Mass/Vol]Or dered By: Christopher Noel on 06-17-2022 MCHC (RBC) [Mass/Vol] 32.6 g/dL 32-[address] [facility] No Panel InformationOrdered By: Christopher Noel on 06-17-2022 Estimated GFR (MDRD) Amer 58 mL/min >60 [facility] Comment on above: GFR Calc Estimated GFR (MDRD) Non-Af Amer 48 mL/min >60 [facility] Comment on above: Non- GFR Calc Thyroid Stimulating Hormone (TSH) 1.84 uIU/mL 0.358-3.74 [facility] Platelets bldOrdered By: Lennox Noel on 06-17-2022 Platelets (Bld) [#/Vol] 303 10*3/uL 150-450 [facility] Serum or plasma albumin china urement (mass/volume)Ordered By: Christopher Noel on 06-17-2022 Albumin [Mass/Vol] 3.8 g/dL 3.2-5.0 [facility] Serum or plasma albumin/glob ulin mass ratioOrdered By: Christopher Noel on 06-17-2022 Albumin/Globulin [Mass ratio] 1.1 {ratio} 0.9-2.4 [facility] Serum or plasma calcium china urement (mass/volume)Ordered By: Christopher Noel on 06-17-2022 Calcium [Mass/Vol] 9.4 mg/dL 8.5-10.1 [facility] Serum or plasma cholesterol in HDL measurement (mass/volume)Ordered By: Christopher Noel on 06-17-2022 Cholesterol in HDL [Mass/Vol] 42 mg/dL >40 [facility] Comment on above: The drugs N-Acetylcy steine and Metamizole may falsely depress this assay. Reference Range HDL <40 mg/dL Low HDL Cholesterol HDL >or= 60 mg/dL High HDL Cholesterol Serum or plasma cholesterol in VLDL measurement (mass/volume)Ordered By: Christopher Noel on 06-17-2022 Cholesterol in VLDL [Mass/Vol] [facility] Comment on above: Test not performed Serum or plasma creatinine m easurement (mass/volume)Ordered By: Christopher Noel on 06-17-2022 Creatinine [Mass/Vol] 1.19 mg/dL 0.55-1.[address] [facility] Comment on above: The validity of the calculated GFR & GFRAA in patients over 70 years has not been determined. Clinical correlation is essential. Serum or plasma low density lipoprotein (LDL) cholesterol measurement (mass/volume)Ordered By: Christopher Noel on 06-17-2022 Cholesterol in LDL [Mass/Vol] [facility] Comment on above: Test not performed Serum or plasma urea nitroge n measurement (mass/volume)Ordered By: Christopher Noel on 06-17-2022 Urea nitrogen [Mass/Vol] 19 mg/dL 7-18 [facility] Thin prep Papanicolaou smear with manual screeningOrdered By: Christopher Noel on 06-17-2022 Thin prep Papanicolaou smear with manual screening 27 U/L 15-37 [facility] Thin prep Papanicolaou smear with manual screening 7 5-15 [facility] Office Visit (Urgent Care)on 06-04-2022 Follow-up visit [...] JOSE LUIS = N; Verified Transmission to [facility]; Last Updated By: Hina Eller; 06/04/2022 [...] syndrome; JOSE LUIS = N; Sent To: [facility] Patient Discussion/Summary Your strep test was negative. Your COVID test was negative. Your flu test was negative. No evidence of a bacterial infection on today's exam. You have a viral illness. Take prescribed medication as directed. May take snol-iwq-wjyeifx cough and cold medications as needed. Consult [...] NEEDED for bronchospasm Vitals Vital Signs Recorded: [id number] 04:32PM Bfrfnysftmk63.3 F Heart Cckk014 Svzimmwrtcw76 Ienfwtwg252 Nbzcfrvit84 Height5 ft 3 in Jgslym974 lb BMI Bibyjxsgoa15.81 kg/m2 BSA Calculated2.07 Tobacco Useb) No PHQ-2 #1. Over the last 2 weeks have you felt down, depressed or hopeless? (If yes, answer PHQ-9 below)No PHQ-2 #2. Over the last 2 weeks have you felt little interest or pleasure in doing things? (If yes, answer PHQ-9 below)No Falls Screening (Age 18+)a) No falls within the last year O2 Hcxkkwlslt52 Pain Scale0 Physical Exam She is alert, [...] rash. Results/Data IO [id number] 05:12PAriana Tavarez (more content not included)... Normal [employer] Clinical Summary: Damaso corbin 06-11-2021 MC25 OP Hand Invalid Interpretation Code [facility] Work Phone: Office Visit: New - visi t with practice, Rm:on 06-11-2021 NEGATED: Highlighted rowTobacco smoking status Tobacco smoking status Invalid Interpretation Code [facility] Work Phone: Complete Blood Count + Diffe ange 05-23-2020 Basophils (Bld) [#/Vol] 0.03 {x10E9/L} See Below [facility] Work Phone: Comment on above: Reference Range: 0.0 0 - 0.10 Basophils/100 WBC (Bld) 0.5 % 0.0 - 2.0 [facility] Work Phone: Eosinophils (Bld) [#/Vol] 0.19 {x10E9/L} See Below [facility] Work Phone: Comment on above: Reference Range: 0.0 0 - 0.70 Eosinophils/100 WBC (Bld) 3.2 % 0.0 - 6.0 [facility] Work Phone: Erythrocyte distribution width (RBC) [Ratio] 13.5 % See Below [facility] Work Phone: Comment on above: Reference Range: 11. 5 - 14.5 Hematocrit (Bld) [Volume fraction] 46.6 % above high threshold See Below [facility] Work Phone: Comment on above: Reference Range: 36. 0 - 46.0 Hemoglobin (Bld) [Mass/Vol] 15.4 g/dL See Below [facility] Work Phone: Comment on above: Reference Range: 12. 0 - 16.0 Lymphocytes (Bld) [#/Vol] 1.45 {x10E9/L} See Below [facility] Work Phone: Comment on above: Reference Range: 1.2 0 - 4.80 Lymphocytes/100 WBC (Bld) 24.2 % See Below [facility] Work Phone: Comment on above: Reference Range: 13. 0 - 44.0 MCHC (RBC) [Mass/Vol] 33.0 g/dL See Below [facility] Work Phone: Comment on above: Reference Range: 32. 0 - 36.0 MCV (RBC) [Entitic vol] 90 fL 80 - 100 [facility] Work Phone: Monocytes (Bld) [#/Vol] 0.40 {x10E9/L} See Below [facility] Work Phone: Comment on above: Reference Range: 0.1 0 - 1.00 Monocytes/100 WBC (Bld) 6.7 % 2.0 - 10.0 [facility] Work Phone: Neutrophils (Bld) [#/Vol] 3.90 {x10E9/L} See Below [facility] Work Phone: Comment on above: Reference Range: 1.2 0 - 7.70 Neutrophils/100 WBC (Bld) 65.1 % See Below [facility] Work Phone: Comment on above: Reference Range: 40. 0 - 80.0 Platelets (Bld) [#/Vol] 243 {x10E9/L} 150 - 450 [facility] Work Phone: RBC (Bld) [#/Vol] 5.17 {x10E12/L} See Below [facility] Work Phone: Comment on above: Reference Range: 4.0 0 - 5.20 WBC (Bld) [#/Vol] 0.0 {/100_WBC} 0.0-0.0 [facility] Work Phone: WBC (Bld) [#/Vol] 6.0 {x10E9/L} 4.4 - 11.3 [facility] Work Phone: Complete Blood Count + Differential 0.3 % 0.0 - 0.9 [facility] Work Phone: Comment on above: Immature Granulocyte Count (IG) includes promyelocytes, myelocytes and metamyelocytes but does not include bands. Percent differential counts (%) should be interpreted in the context of the absolute cell counts (cells/L). Lipid Panelon 05-23-2020 Cholesterol [Mass/Vol] 192 mg/dL 0 - 199 [facility] Work Phone: Comment on above: . [...] dosing. Cholesterol in HDL [Mass/Vol] 43.0 mg/dL [facility] Work Phone: Comment on above: . AGE VERY LOW LOW N ORMAL HIGH 0-19 Y < 35 < 40 40-45 ---- 20-24 Y ---- < 40 >45 ---- >24 Y ---- < 40 40-60 >60. Cholesterol in LDL [Mass/Vol] 120 mg/dL above high threshold 0 - 99 [facility] Work Phone: Comment on above: . NEAR BORD AGE MIREYA RABLE OPTIMAL HIGH HIGH VERY HIGH 0-19 Y 0 - 109 --- 110-129 >/= 130 ---- 20-24 Y 0 - 119 --- 120-159 >/= 160 ---- >24 Y 0 - 99 100-129 130-159 160-189 >/=190. Cholesterol.total/Chol esterol in HDL [Mass ratio] 4.5 {ratio} [facility] Work Phone: Comment on above: REF VALUESDESIRABLE < 3.4HIGH RISK > 5.0 Triglyceride [Mass/Vol] 145 mg/dL 0 - 149 [facility] Work Phone: Comment on above: . [...] Lipid Panel 29 mg/dL 0 - 40 [facility] Work Phone: Metabolic Panelon 05-23-2020 ALP [Catalytic activity/Vol] 73 U/L 33 - 136 [facility] Work Phone: Anion gap [Moles/Vol] 17 mmol/L 10 - 20 [facility] Work Phone: Bilirubin [Mass/Vol] 0.6 mg/dL 0.0 - 1.2 [facility] Work Phone: Calcium [Mass/Vol] 10.0 mg/dL 8.6 - 10.6 [facility] Work Phone: Chloride [Moles/Vol] 102 mmol/L 98 - 107 [facility] Work Phone: CO2 [Moles/Vol] 27 mmol/L 21 - 32 [facility] Work Phone: Creatinine [Mass/Vol] 1.20 mg/dL above high threshold See Below [facility] Work Phone: Comment on above: Reference Range: 0.5 0 - 1.05 Glucose [Mass/Vol] 105 mg/dL above high threshold 74 - 99 [facility] Work Phone: Potassium [Moles/Vol] 4.3 mmol/L 3.5 - 5.3 [facility] Work Phone: Protein [Mass/Vol] 6.7 g/dL 6.4 - 8.2 [facility] Work Phone: Sodium [Moles/Vol] 142 mmol/L 136 - 145 [facility] Work Phone: Urea nitrogen [Mass/Vol] 23 mg/dL 6 - 23 [facility] Work Phone: Otheron 05-23-2020 Albumin BCP dye [Mass/Vol] 4.5 g/dL 3.4 - 5.0 [facility] Work Phone: ALT With P-5'-P [Catalytic activity/Vol] 27 U/L 7 - 45 [facility] Work Phone: Comment on above: Patients treated wit h Sulfasalazine may generate falsely decreased results for ALT. AST With P-5'-P [Catalytic activity/Vol] 27 U/L 9 - 39 [facility] Work Phone: 45 {mL/min/1.73m2} Abnormal >60 [facility] Work Phone: 54 {mL/min/1.73m2} Abnormal >60 [facility] Work Phone: Comment on above: CALCULATIONS OF FELICE MATED GFR ARE PERFORMED USING THE MDRD STUDY EQUATION FOR THE IDMS-TRACEABLE CREATININE METHODS. CLIN CHEM 2007;53:766-72 Thyroidon 05-23-2020 TSH Qn 2.00 {mIU/L} See Below [facility] Work Phone: Comment on above: Reference Range: 0.4 4 - 3.98 TSH testing is performed using different testing methodology at [facility] than at [facility]. Direct result comparisons should only be made within the same method. Otheron 10-14-2019 [facility] Vital Signs Date Time Vital Sign Value Performing Clinician Facility 06-17-2022 14:59-0500 Body height 160.02 cm [facility] 06-17-2022 14:59-0500 Body mass index (BMI) [Ratio] 42.1 kg/m2 [facility] 06-17-2022 14:59-0500 Body temperature 97.2 [degF] [facility] 06-17-2022 14:59-0500 Body weight 107.95 kg [facility] 06-17-2022 14:59-0500 Diastolic blood pressure 80 mm[Hg] [facility] 06-17-2022 14:59-0500 Heart rate 61 /min [facility] 06-17-2022 14:59-0500 Respiratory rate 18 /min [facility] 06-17-2022 14:59-0500 SaO2% (BldA) [Mass fraction] 95 % [facility] 06-17-2022 14:59-0500 Systolic blood pressure 130 mm[Hg] [facility] NEGATED: Highlighted [id number] 12:07-0500 Body height 162.56 cm Daisy Oleary RN [facility] Work Phone: NEGATED: Highlighted [id number] 12:07-0500 Body height 163 cm Daisy Oleary RN [facility] Work Phone: NEGATED: Highlighted [id number] 12:07-0500 Body mass index (BMI) [Ratio] 41 kg/m2 Daisy Oleary RN [facility] Work Phone: NEGATED: Highlighted [id number] 12:07-0500 Body weight 107.96 kg Daisy Oleary RN [facility] Work Phone: NEGATED: Highlighted [id number] 12:07-0500 Body weight 108 kg Daisy Oleary RN [facility] Work Phone: Encounters Encounter Date Encounter Type Care Provider Facility Start: 02-28-2025 Encounter for genera l adult medical examination without abnormal findings Christopherbárbara Noel [facility] Start: 02-20-2025 End: 02-20-2025 ambulatory Christopher Noel Facility:[facility] Start: 11-06-2022 Documentation procedure Mammog jayne Coordinator [facility] Start: 11-06-2022 Letter encounter Mammography Coordinator [facility] Department Start: 11-06-2022 ambulatory CHRISTOPHER NOEL Facil ity:[facility] Start: 11-06-2022 End: 11-06-2022 Subsequent hospital visit by physician Screen/Diagnostic Mammo 1 [facility] Work Phone: Mammography Comment on above: Encounter for screen ing mammogram for malignant neoplasm of breast [Z12.31] Start: 06-17-2022 End: 06-17-2022 ambulatory [facility] Work Phone: Start: 06-17-2022 End: 06-17-2022 Patient encounter procedure [facility]-Laboratory, Specimen Start: 06-04-[address] Louise Reyes Facility:[id number] Start: 11-20-2020 AUDIT Louise L Me valdovinos Work Phone: [facility] Work Phone: Start: 05-24-2020 Patient encounter procedure Louise Reyes [facility] Work Phone: Start: 01-09-2020 Patient encounter procedure Louise Reyes [facility] Work Phone: Start: 11-23-2019 Patient encounter procedure Louise Reyes [facility] Work Phone: Start: 10-14-2019 End: 10-14-2019 Subsequent hospital visit by physician Screen/Diagnostic Mammo [facility] Work Phone: Mammography Comment on above: Encounter for other screening for malignant neoplasm of breast [Z12.39] Start: 07-07-2019 Patient encounter procedure Louise Reyes [facility] Work Phone: Procedures Date Procedure Procedure Detail Performing Clinician Start: 11-06-2022 End: 11-06-2022 Screening mammography bi 2-view breast inc cad 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 Work Phone: Start: 06-11-2021 End: 06-11-2021 BP scrn no perf at interval Jimmie Silveira MD Work Phone: Start: 06-11-2021 End: 06-11-2021 Calc BMI abv up kenn f/u Jimmie alberto MD Work Phone: Start: 06-11-2021 End: 06-11-2021 Current tobacco non-user cad cap copd pv dm Jimmie Silveira MD Work Phone: Start: 06-11-2021 End: 06-11-2021 Docrev cur meds by elig clin Jimmie Silveira MD Work Phone: Start: 06-11-2021 End: 06-11-2021 Pain neg no plan Jimmie Silveira MD Work Phone: Start: 06-11-2021 End: 06-11-2021 Patient encounter procedure Jimmie Silveira MD Work Phone: Start: 06-11-2021 End: 06-11-2021 Radex hand minimum 3 views Jimmie briceño MD Work Phone: Start: 10-14-2019 Screening mammograph y bi 2-view breast inc cad [facility] Provider Start: 10-14-2019 Mammography Screen[facility] Appendectomy Louisegoran Reyes Bilateral tubal ligation Jordan phanie Mesko Cholecystectomy Louise Me sko Hysterectomy Louise Amy Comment on above: due to heavy bleedin g, no cancer; Tonsillectomy and adenoidectomy Louise Mesko NEGATED: Highlighted rowStart: 06-11-2021 End: 06-11-2021 Documentation of current medications Daisy Oleary RN Plan of Treatment Date Care Activity Detail Author Start: 12-21-2023 LIPID SCREEN LIPID SCREEN [facility] Start: 11-07-2023 Mammography MAMMOGRAM [facility] Start: 12-26-2022 Influenza vaccination INFLUENZA (#1) [facility] Start: 04-27-2022 ADVANCE DIRECTIVE DISCUSSION ADVANCE DIRECTIVE DISCUSSION [facility] Start: 04-27-2022 DEPRESSION ASSESSMENT DEPRESSION ASSESSMENT [facility] Start: 12-20-2021 DIABETES SCREEN DIABETES SCREEN [facility] Start: 09-10-2021 End: 09-10-2021 Patient encounter procedure Appointment [facility] Work Phone: Start: 06-11-2021 End: 06-11-2021 Patient encounter procedure Appointment [facility] Work Phone: Start: 05-23-2021 COVID-19 VACCINE (4 - Pfizer series) COVID-19 VACCINE (4 - Pfizer series) [facility] Start: 11-26-2020 PHYSICAL, Provider: Louise Reyes, Status: Pen, Time: 9:50 AM PHYSICAL, Provider: Louise Reyes, Status: Pen, Time: 9:50 AM [facility] Work Phone: Start: 10-13-2020 Mammography MAMMOGRAM [facility] Start: 12-27-2019 Influenza vaccination INFLUENZA (Season Ended) [facility] Start: 11-03-2019 BONE DENSITY BONE DENSITY [facility] Start: 11-03-2019 PNEUMOCOCCAL: 65+ (1 - PCV) PNEUMOCOCCAL: 65+ (1 - PCV) [facility] Start: 2004 SHINGRIX VACCINE (1 of 2) SHINGRIX VACCINE (1 of 2) [facility] Start: 2004 Tuberculosis screening COLORECTAL CANCER SCREENING,SEE MODIFIER [facility] Start: 11-03-1999 COLOGUARD (FIT-DNA) COLOGUARD (FIT-DNA) [facility] Start: 11-03-1999 Colonoscopy COLONOSCOPY [facility] Start: 11-03-1999 COLORECTAL CANCER SCREENING COLORECTAL CANCER SCREENING [facility] Start: 11-03-[address] COLONOGRAPHY [facility] Start: 11-03-1999 FECAL OCCULT BLOOD FECAL OCCULT BLOOD [facility] Start: 11-03-1999 SIGMOIDOSCOPY SIGMOIDOSCOPY [facility] Start: 1984 HPV TESTING HPV TESTING [facility] Start: 11-03-1975 PAP TESTING PAP TESTING [facility] Start: 1973 Urine microalbumin profile DTAP,TDAP,TD (1 - Tdap) [facility] Start: 1972 HEPATITIS C SCREENING HEPATITIS C SCREENING [facility] Start: 1972 HIV SCREENING HIV SCREENING [facility] Immunizations Immunization Date Immunization Notes Care Provider Fa cili 01-09-2020 zoster vaccine recombinant; Translations: [Shingrix 50 MCG Intramuscular Suspension Reconstituted] [facility] Work Phone: Comment on above: Series: 01-09-2020 influenza, high dose seasonal, preservative-free; Translations: [Fluzone High-Dose 0.5 ML Intramuscular Suspension Prefilled Syringe] [facility] Work Phone: Comment on above: Series: 11-23-2019 pneumococcal conjuga te vaccine, 13 valent; Translations: [Prevnar 13 Intramuscular Suspension] [facility] Work Phone: Comment on above: Series: 11-23-2019 zoster vaccine recombinant; Translations: [Shingrix 50 MCG Intramuscular Suspension Reconstituted] Louise [facility] Work Phone: Comment on above: Series: Payers Date Payer Category Payer Self-pay [id number] 2020 Unknown 2020 Unknown [id number] 2008 Unknown STAS JIMÉNEZ PREF ERRED EPO [id number] 2008-Present EPO [id number] 1954 Unknown [id number] Unknown [id number] Social History Date Type Detail Facility [facility] Start: 1955 [facility] Exposure to SARS-CoV -2 (event) Not sure [facility] Start: 04-01-2020 Former smoker Former smoker [facility] Work Phone: Comment on above: Cessationin 1991; Start: 07-07-2019 [facility] Start: 1955 Sex Assigned At Female [facility] Start: 04-01-2020 Area Deprivation Index [facility] National Score (1-100), lower number is lower risk Not on file [facility] NEGATED: Highlighted row - - [facility] Work Phone: NEGATED: Highlighted rowStart: 06-11-2021 End: 06-11-2021 [facility] use [facility] Work Phone: NEGATED: Highlighted rowStart: 06-11-2021 End: 06-11-2021 Details of drug misuse behavior Details of drug misuse behavior [facility] Work Phone: NEGATED: Highlighted rowStart: 06-11-2021 End: 06-11-2021 Assertion Former smoker [facility] Work Phone: Functional Status Date Assessment Result Facility NEGATED: Highlighted row Functional performance Functional status health issues are not documented Disease [facility] Work Phone: Mental Status Date Assessment Result Facility NEGATED: Highlighted row Cognitive function [Interpretation] Cognitive status health issues are not documented Disease [facility] Work Phone: Note 11-06-2022 Letter - Coordinator, Mammography - 11/06/2022 9:22 PM EDT Note Date & Type Note Facility 11-06-2022 Miscellaneous Notes Formattin g of this note might be different from the original. November 07, 2022 PID: [id number] Nara Vega [address] [place] [address] Dear Ms. Vega, We are pleased to [...] report will be kept on file at [facility] as part of your permanent medical record and are available for your continuing care. Thank you for allowing us to help in meeting your health care needs. Sincerely, Dr. Hooker Interpreting Radiologist [facility] (Normal over 40) documented in this encounter [facility] Progress note 11-06-2022 Note Date & Type Note Facility 11-06-2022 Note HNO ID: [id number] Author: RACHEAL Garcia Service: Radiology Author Type: [...] Estrada RT November 06, 2022 9:53 AM [facility] History of Present illness Narrative 11-06-2022 Abi [...] 2022 9:53 AM documented in this encounter [facility] Instructions 06-11-2021 Note Date & Type Note Facility 06-11-2021 Instructions Patient advised to follow-up with Primary Care Physician for BMI management. [facility] Work Phone: Evaluation note Note Date & Type Note Facility Evaluation note There may be informa tion available, but it has not been provided by the sender. [facility] Work Phone: Evaluation note Note Date & Type Note Facility Evaluation note Diagnosis Onset Date Breast cancer screening by mammogram acute [id number] acute Hypertriglyceridemia acute Hypertension [facility] Work Phone: History of Present Illness * Leslie Coy Tech (Rt) - 10/14/2019 2:40 PM EDT Radiology Service [...] Visit Breast cancer screen ing by mammogram [id number] Hypertriglyceridemia Hypertension Additional Source Comments Source Comments (unrecognize d section and content) In the event this informatio n is protected by the Federal Confidentiality of Alcohol and Drug Abuse Patient Records regulations: The Federal rules restrict any use of the information to criminally investigate or prosecute any alcohol or drug abuse patient.[facility] the event this information is protected by the Federal Confidentiality of Alcohol and Drug Abuse Patient Records regulations: The Federal rules restrict any use of the information to criminally investigate or prosecute any alcohol or drug abuse patient.[facility] the event this information is protected by the Federal Confidentiality of Alcohol and Drug Abuse Patient Records regulations: The Federal rules restrict any use of the information to criminally investigate or prosecute any alcohol or drug abuse patient.[facility] Reason for Visit (unrecogniz ed section and content) Reason For Visit Description New - 1st visit with practice Preliminary reason f or visit data, not yet signed by the author as of left hand swelling INFORMATION SOURCE (unrecogn ized section and content) DATE CREATED AUTHOR 06/05/2022 [facility] DATE CREATED AUTHOR AUTHOR'S ORGANIZ ATION 06/05/2022 [employer] DATE CREATED AUTHOR AUTHOR'S ORGANIZ ATION 11/07/2022 [facility] DATE CREATED AUTHOR AUTHOR'S ORGANIZ ATION 11/11/2022 [facility] DATE CREATED AUTHOR AUTHOR'S ORGANIZ ATION 03/02/2025 [facility] Care Teams (unrecognized sec tion and content) Team Status: Active Member Role Status Dates Christopher Noel VICE PRESIDENT FINANCIAL, VICE PRESIDENT FINANCIAL-C Family Provider Active Christopher Noel VICE PRESIDENT FINANCIAL, VICE PRESIDENT FINANCIAL-C Primary Care Provider Active Team Status: Inactive Member Role Status Dates Christopher Noel VICE PRESIDENT FINANCIAL, VICE PRESIDENT FINANCIAL-C Primary Care Pr ovider, Attending Provider, Referring Provider Active Team Status: Inactive Member Role Status Dates Christopher Noel VICE PRESIDENT FINANCIAL, VICE PRESIDENT FINANCIAL-C Primary Care Provider, Attend ing Provider Active [employer] Relationship Specialty Start Date End Date Christopher Noel APRN.CNP [address] [place] [address] PCP - General Family Medicine 05/17/21 [employer] Relationship Specialty Start Date End Date Christopher Noel APRN.CNP [address] [place] [address] PCP - General Family Medicine 05/17/21 Goals [...] BE BASED ON THE PRIMARY CLINICAL RECORDS. [facility] provides no warranty or guarantee of the accuracy or completeness of information in this document.
[2025-03-15 21:34] LABS: Hematocrit 43.0 % (37-47); Hemoglobin 14.2 g/dL (12.0-15.0); Immature Granulocytes Count 0.030 X10^3/uL (0.0-0.0); Mean Corp Hgb Conc 33.0 g/dL (32-36); Mean Corpuscular Volume 88.1 fL (81-99); Mean Platelet Vol. 10.1 fl (6.2-12.0); NRBC Flagged by Analyzer 0 % (0-5); Platelet Count 305 K/mm3 (150-450); RBC Distribution Width CV 13.4 % (11.6-14.6); RBC Distribution Width SD 43.7 fl (35.1-43.9); Red Blood Count 4.88 M/mm3 (4.2-5.4); White Blood Count 9.9 K/mm3 (4.4-11.0)
[2025-03-15 21:54] LABS: AST(SGOT) 26 U/L (<=31); Alanine Aminotransfer ALT/SGPT 23 U/L (<=34); Albumin, Serum 4.3 g/dL (3.4-4.8); Alkaline Phosphatase 103 U/L (35-104); Anion Gap 10 (5-15); BUN 27 mg/dL (4-19); BUN/Creat Ratio 25.1 RATIO (10-20); Calcium,Total 10.2 mg/dL (7.6-11.0); Carbon Dioxide 26.4 mmol/L (21.0-32.0); Chloride 104 mmol/L (98-108); Globulin 3.0 g/dL (2.2-4.2); Glucose 162 mg/dL (70-99); Potassium 4.2 mmol/L (3.3-5.1); Uric Acid 7.3 mg/dL (2.6-6.0)
== END | disposition home or self-care (01) ==
PROVIDERS: PCP Nurse Practitioner; Visit Provider Nurse Practitioner
DX: E11.65 Type 2 diabetes mellitus with hyperglycemia (principal); R22.42 Localized swelling, mass and lump, left lower limb; R23.3 Spontaneous ecchymoses
CPT/HCPCS: 80053; 84550; 85025